=== PATIENT | female | born 1955 | race Caucasian/White ===

== ENCOUNTER → 2016-07-03 | Outpatient (REF) | payer OTHER ==
[~2016-07-03] MED LIST: AMBI10TA PO; ATOR1TAB19 PO; CARV3.12 PO; LANS15CA PO; LOSA50TA20 PO; TYLE650T25 PO
[2016-07-03 15:53] LABS: ALBUMIN 3.7 GM/DL (3.2-5.2); ALBUMIN/GLOBULIN RATIO 1.16 (1.00-1.93); ALKALINE PHOSPHATASE 80 U/L (45-117); ALT/SGPT 24 U/L (12-78); ANION GAP 11 MEQ/L (8-16); AST/SGOT 34 U/L (15-37); BILIRUBIN,TOTAL 0.9 MG/DL (0.2-1.0); BLOOD UREA NITROGEN 10 MG/DL (7-18); CALCIUM LEVEL 7.6 MG/DL (8.8-10.2); CARBON DIOXIDE LEVEL 29 MEQ/L (21-32); CHLORIDE LEVEL 105 MEQ/L (98-107); CREATININE FOR GFR 0.58 MG/DL (0.55-1.02); GLOMERULAR FILTRATION RATE > 60.0 (>45); GLUCOSE, FASTING 108 MG/DL (80-110); POTASSIUM SERUM 2.5 MEQ/L (3.5-5.1); SODIUM LEVEL 145 MEQ/L (136-145); TOTAL PROTEIN 6.9 GM/DL (6.4-8.2)
== END ==
LOC: M SFHCPLAZ 13:36
PROVIDERS: ATTEND Nurse Practitioner Family
DX: E11.65 Type 2 diabetes mellitus with hyperglycemia (principal)

== ENCOUNTER → 2016-07-06 | Outpatient (REF) | payer OTHER ==
[2016-07-06 13:09] LABS: ALBUMIN 3.5 GM/DL (3.2-5.2); ALBUMIN/GLOBULIN RATIO 1.25 (1.00-1.93); ALKALINE PHOSPHATASE 78 U/L (45-117); ALT/SGPT 22 U/L (12-78); ANION GAP 11 MEQ/L (8-16); AST/SGOT 28 U/L (15-37); BILIRUBIN,TOTAL 0.7 MG/DL (0.2-1.0); BLOOD UREA NITROGEN 13 MG/DL (7-18); CALCIUM LEVEL 7.8 MG/DL (8.8-10.2); CARBON DIOXIDE LEVEL 27 MEQ/L (21-32); CHLORIDE LEVEL 108 MEQ/L (98-107); CREATININE FOR GFR 0.51 MG/DL (0.55-1.02); GLOMERULAR FILTRATION RATE > 60.0 (>45); GLUCOSE, FASTING 117 MG/DL (80-110); POTASSIUM SERUM 2.8 MEQ/L (3.5-5.1); SODIUM LEVEL 146 MEQ/L (136-145); TOTAL PROTEIN 6.3 GM/DL (6.4-8.2)
== END ==
LOC: M SFHCPLAZ 08:02
PROVIDERS: ATTEND Nurse Practitioner Family
DX: E11.65 Type 2 diabetes mellitus with hyperglycemia (principal); E87.6 Hypokalemia; E83.51 Hypocalcemia

== ENCOUNTER → 2016-07-15 | Outpatient (REF) | payer OTHER ==
[2016-07-15 16:50] LABS: ALBUMIN 3.9 GM/DL (3.2-5.2); ALBUMIN/GLOBULIN RATIO 1.15 (1.00-1.93); ALKALINE PHOSPHATASE 84 U/L (45-117); ALT/SGPT 23 U/L (12-78); ANION GAP 4 MEQ/L (8-16); AST/SGOT 34 U/L (15-37); BILIRUBIN,TOTAL 0.9 MG/DL (0.2-1.0); BLOOD UREA NITROGEN 10 MG/DL (7-18); CALCIUM LEVEL 8.8 MG/DL (8.8-10.2); CARBON DIOXIDE LEVEL 31 MEQ/L (21-32); CHLORIDE LEVEL 108 MEQ/L (98-107); CHOLESTEROL LEVEL 78 MG/DL (<200); CREATININE FOR GFR 0.54 MG/DL (0.55-1.02); GLOMERULAR FILTRATION RATE > 60.0 (>45); GLUCOSE, FASTING 86 MG/DL (80-110); POTASSIUM SERUM 4.3 MEQ/L (3.5-5.1); SODIUM LEVEL 143 MEQ/L (136-145); TOTAL PROTEIN 7.3 GM/DL (6.4-8.2); TRIGLYCERIDES LEVEL 128 MG/DL (<150)
== END ==
LOC: M SFHCPLAZ 13:20
PROVIDERS: ATTEND Nurse Practitioner Family
DX: E11.65 Type 2 diabetes mellitus with hyperglycemia (principal); I10 Essential (primary) hypertension; E78.4 Other hyperlipidemia

== ENCOUNTER → 2016-07-15 | Outpatient (CLI) | payer OTHER ==
--- NOTE | 2016-07-15 14:21 | REP ---
BILATERAL MAMMOGRAM: Bilateral mammography performed in the MLO and CC projections and compared to multiple prior exams, the most recent of which is 04/23/2015. Mild scattered fibroglandular tissue is again noted. There appears to be a small, rounded nodule in the lower left breast, which is not seen on prior studies. It measures about 7 mm in maximum diameter. No other nodule is seen nor is there evidence of architectural distortion. No clustered microcalcifications are seen. IMPRESSION: New small nodular opacity lower left breast. Recommend spot compression views and ultrasound to further evaluate. ACR 0 incomplete. BI-RADS/ACR category 0 mammogram, incomplete. Additional imaging and/or prior images are needed before a final assessment can be assigned. This mammogram was interpreted with the aid of an FDA-approved computer-aided detection system. The patient states that she/he has not had a clinical breast exam in over a year. The patient letter being requested is M0.
== END ==
LOC: M WHC 12:59
PROVIDERS: ATTEND Nurse Practitioner Family
DX: Z12.31 Encounter for screening mammogram for malignant neoplasm of breast (principal); R92.2 Inconclusive mammogram

== ENCOUNTER → 2016-07-16 | Outpatient (REF) | payer OTHER | LOC: M LAB REF 14:06 | PROVIDERS: ATTEND Internal Medicine Nephrology | DX: E11.22 Type 2 diabetes mellitus with diabetic chronic kidney disease (principal); I10 Essential (primary) hypertension; E87.6 Hypokalemia ==

== ENCOUNTER → 2016-07-28 | Outpatient (CLI) | payer OTHER ==
[~2016-07-28] MED LIST changes: +GASTROGRAFIN SOLUTION 30ML (Q9963) As Ordered ONE; +ISOVUE-370 76% 100ML VIAL (Q9967) As Ordered ONE
--- NOTE | 2016-07-29 03:47 | REP ---
Clinical: Adrenal mass. Technique: Axial contrast enhanced images of the abdomen and pelvis from the lung bases to the pubic symphysis using oral and 100 ml Isovue 370 intravenous contrast material along with precontrast, arterial phase, and delayed phase imaging of the abdomen. Coronal and sagittal re-formations obtained. Comparison: None. Findings: The bilateral adrenal glands are normal in appearance, density and enhancement in all phases of evaluation. No adrenal mass lesion identified. Liver, spleen, pancreas, and bilateral kidneys are normal. The patient is status post cholecystectomy. The enteric system is without obstruction or acute inflammatory process. Pelvis demonstrates collapsed bladder and age-appropriate uterus/adnexa. No pelvic fluid or ascites. No intraperitoneal or retroperitoneal adenopathy. No free air. Abdominal aorta and vasculature is normal and without aneurysm or dissection. Musculoskeletal structures are intact. Lung bases are clear -- incidental 2 cm bullae in the posterior right lower lobe. Impression: 1. Normal bilateral adrenal glands without mass lesion. 2. No acute intra-abdominal or pelvic pathology appreciated. 3. Incidental 2 cm bullae in the right lower lobe Signed by Audi Pizarro MD 07/29/2016 03:38 A
== END ==
LOC: M RAD 09:52
PROVIDERS: ATTEND Internal Medicine Nephrology
DX: D44.10 Neoplasm of uncertain behavior of unspecified adrenal gland (principal); J43.9 Emphysema, unspecified; E87.6 Hypokalemia

== ENCOUNTER → 2016-07-28 | Outpatient (CLI) | payer OTHER ==
[~2016-07-28] MED LIST changes: -GASTROGRAFIN SOLUTION 30ML (Q9963) As Ordered ONE; -ISOVUE-370 76% 100ML VIAL (Q9967) As Ordered ONE
--- NOTE | 2016-07-28 10:29 | REP ---
DIAGNOSTIC MAMMOGRAM LEFT BREAST: Diagnostic mammogram left breast performed with spot compression views obtained of the left breast with a mole marker placed on an inferiorly located mole. The suspected nodular opacity in the inferior left breast on the mammogram of 07/15/2016 does correspond to a skin mole. Finding is benign. IMPRESSION: ACR 2 benign. The suspected nodular opacity in the lower left breast corresponds to a skin mole and is therefore benign. Recommend followup mammogram in 1 year. BI-RADS/ACR category 2 mammogram. Benign finding(s). Routine annual screening mammography (for women over age 40). This mammogram was interpreted with the aid of an FDA-approved computer-aided detection system. A. Negative x-ray reports should not delay biopsy if a dominant or clinically suspicious mass is present. B. Four to eight percent of cancers are not identified by x-ray. C. Adenosis and dense breasts may obscure an underlying neoplasm. The patient letter being requested is M1. Signed by Reji Bear MD 07/28/2016 05:24 P
== END ==
LOC: M RAD 09:48
PROVIDERS: ATTEND Nurse Practitioner Family
DX: D24.2 Benign neoplasm of left breast (principal)

== ENCOUNTER → 2016-08-19 | Outpatient (REF) | payer OTHER ==
[2016-08-19 19:14] LABS: PERCENT SATURATION 10.4 % (13.2-37.4)
== END ==
LOC: M LAB REF 16:49
PROVIDERS: ATTEND Internal Medicine Nephrology
DX: D50.9 Iron deficiency anemia, unspecified (principal)

== ENCOUNTER → 2017-05-06 | Outpatient (REF) | payer OTHER ==
[2017-05-07 14:05] LABS: ESTIMATED AVERAGE GLUCOSE 131 MG/DL (60-110); HEMOGLOBIN A1c 6.2 %
== END ==
LOC: M SFHCLERA 16:51
DX: E11.9 Type 2 diabetes mellitus without complications (principal)
CPT/HCPCS: 83036

== ENCOUNTER → 2017-05-19 | Outpatient (REF) | payer OTHER | LOC: M SFHCLERA 09:33 | DX: C44.519 Basal cell carcinoma of skin of other part of trunk (principal) ==

== ENCOUNTER → 2017-06-03 | Outpatient (REF) | payer OTHER ==
[2017-06-03 12:26] LABS: ANION GAP 8 MEQ/L (8-16); AST/SGOT 70 U/L (7-37); BLOOD UREA NITROGEN 14 MG/DL (7-18); CALCIUM LEVEL 8.6 MG/DL (8.8-10.2); CARBON DIOXIDE LEVEL 27 MEQ/L (21-32); CHLORIDE LEVEL 108 MEQ/L (98-107); CREATININE FOR GFR 0.57 MG/DL (0.55-1.30); GLOMERULAR FILTRATION RATE > 60.0 (>45); GLUCOSE, FASTING 108 MG/DL (70-100); POTASSIUM SERUM 4.1 MEQ/L (3.5-5.1); SODIUM LEVEL 143 MEQ/L (136-145)
[2017-06-03 12:27] LABS: ALBUMIN 3.7 GM/DL (3.2-5.2); ALBUMIN/GLOBULIN RATIO 1.16 (1.00-1.93); ALKALINE PHOSPHATASE 104 U/L (45-117); ALT/SGPT 49 U/L (12-78); BILIRUBIN,TOTAL 0.9 MG/DL (0.2-1.0); CHOLESTEROL LEVEL 82 MG/DL (<200); CHOLESTEROL RISK RATIO 2.645 (<5); HDL CHOLESTEROL 31 MG/DL (>40); LDL CHOLESTEROL 32.4 MG/DL (<100); MAGNESIUM LEVEL 1.7 MG/DL (1.8-2.4); NON-HDL-C 51 MG/DL; TOTAL PROTEIN 6.9 GM/DL (6.4-8.2); TRIGLYCERIDES LEVEL 93 MG/DL (<150)
[2017-06-03 13:08] LABS: HEMATOCRIT 37.1 % (36.0-47.0); HEMOGLOBIN 11.8 g/dl (12.0-16.0); MEAN CORPUSCULAR HEMOGLOBIN 27.2 pg (27.0-33.0); MEAN CORPUSCULAR HGB CONC 31.8 g/dl (32.0-36.5); MEAN CORPUSCULAR VOLUME 85.5 fl (80.0-96.0); PLATELET COUNT, AUTOMATED 118 10^3/uL (150-450); RED BLOOD COUNT 4.34 10^6/uL (4.00-5.40); RED CELL DISTRIBUTION WIDTH 19.8 % (11.5-14.5); WHITE BLOOD COUNT 5.7 10^3/uL (4.0-10.0)
== END ==
LOC: M SFHCLERA 09:23
DX: E78.5 Hyperlipidemia, unspecified (principal); E83.42 Hypomagnesemia; E11.21 Type 2 diabetes mellitus with diabetic nephropathy
CPT/HCPCS: 83735

== ENCOUNTER → 2017-07-15 | Outpatient (REF) | payer OTHER ==
[2017-07-15 18:45] LABS: FERRITIN 12 NG/ML (8-252); IRON (FE) 79 UG/DL (50-170); TOTAL IRON BINDING CAPACITY 359 UG/DL (250-450)
== END ==
LOC: M LAB REF 17:29
DX: D50.9 Iron deficiency anemia, unspecified (principal)

== ENCOUNTER → 2017-08-05 | Outpatient (REF) | payer OTHER | LOC: M SFHCLERA 12:03 | DX: C44.509 Unspecified malignant neoplasm of skin of other part of trunk (principal) ==

== ENCOUNTER → 2017-08-25 | Outpatient (REF) | payer OTHER | LOC: M SFHCLERA 09:26 | DX: C44.309 Unspecified malignant neoplasm of skin of other parts of face (principal) ==

== ENCOUNTER → 2017-11-17 | Outpatient (REF) | payer OTHER ==
[2017-11-17 17:31] LABS: ESTIMATED AVERAGE GLUCOSE 117 MG/DL (60-110); HEMOGLOBIN A1c 5.7 %
== END ==
LOC: M SFHCLERA 14:16
DX: E11.21 Type 2 diabetes mellitus with diabetic nephropathy (principal)

== ENCOUNTER → 2017-12-09 | Outpatient (REF) | payer OTHER | LOC: M SFHCLERA 10:37 | DX: C44.319 Basal cell carcinoma of skin of other parts of face (principal) ==

== ENCOUNTER → 2017-12-29 | Outpatient (REF) | payer OTHER | LOC: M SFHCLERA 14:52 | DX: Z12.4 Encounter for screening for malignant neoplasm of cervix (principal) ==

== ENCOUNTER → 2017-12-29 | Outpatient (CLI) | payer OTHER | LOC: M RAD 08:19 | DX: R92.2 Inconclusive mammogram (principal); R92.1 Mammographic calcification found on diagnostic imaging of breast | CPT/HCPCS: 77067 ==

== ENCOUNTER → 2018-01-10 | Outpatient (CLI) | payer OTHER | LOC: M RAD 12:58 | DX: R92.0 Mammographic microcalcification found on diagnostic imaging of breast (principal) | CPT/HCPCS: 77065 ==

== ENCOUNTER → 2018-01-19 | Outpatient (CLI) | payer OTHER ==
[~2018-01-19] MED LIST changes: -AMBI10TA PO; -ATOR1TAB19 PO; -CARV3.12 PO; -LANS15CA PO; +LIDOCAINE 1% MDV 20ML VIAL As Ordered; -LOSA50TA20 PO; -TYLE650T25 PO
== END ==
LOC: M RADPRO 11:45
DX: N64.89 Other specified disorders of breast (principal); R92.0 Mammographic microcalcification found on diagnostic imaging of breast; Z79.82 Long term (current) use of aspirin; Z79.899 Other long term (current) drug therapy; Z88.8 Allergy status to other drugs, medicaments and biological substances
CPT/HCPCS: 19081

== ENCOUNTER → 2018-02-03 | Outpatient (REF) | payer OTHER ==
[2018-02-03 17:58] LABS: HEMATOCRIT 38.1 % (36.0-47.0); HEMOGLOBIN 12.3 g/dl (12.0-15.5); MEAN CORPUSCULAR HEMOGLOBIN 29.4 pg (27.0-33.0); MEAN CORPUSCULAR HGB CONC 32.3 g/dl (32.0-36.5); MEAN CORPUSCULAR VOLUME 91.1 fl (80.0-96.0); PLATELET COUNT, AUTOMATED 100 10^3/uL (150-450); RED BLOOD COUNT 4.18 10^6/uL (4.00-5.40); RED CELL DISTRIBUTION WIDTH 14.5 % (11.5-14.5); WHITE BLOOD COUNT 6.4 10^3/uL (4.0-10.0)
[2018-02-03 18:09] LABS: INR 1.18; PROTHROMBIN TIME 15.2 SECONDS (12.1-14.4)
[2018-02-03 18:26] LABS: ANION GAP 9 MEQ/L (8-16); BLOOD UREA NITROGEN 18 MG/DL (7-18); CALCIUM LEVEL 8.7 MG/DL (8.8-10.2); CARBON DIOXIDE LEVEL 26 MEQ/L (21-32); CHLORIDE LEVEL 109 MEQ/L (98-107); CREATININE FOR GFR 0.64 MG/DL (0.55-1.30); GLOMERULAR FILTRATION RATE > 60.0 (>45); GLUCOSE, FASTING 118 MG/DL (70-100); POTASSIUM SERUM 4.1 MEQ/L (3.5-5.1); SODIUM LEVEL 144 MEQ/L (136-145)
== END ==
LOC: M SFHCLERA 11:09
DX: Z01.812 Encounter for preprocedural laboratory examination (principal)
CPT/HCPCS: 80048

== ENCOUNTER 2018-02-04 07:41 | Day surgery (SDC) | payer OTHER ==
[~2018-02-04 07:41] MED LIST changes: -LIDOCAINE 1% MDV 20ML VIAL As Ordered; +LIDOCAINE 1% MDV 20ML VIAL SQ
[2018-02-04] MEDS ORDERED: LIDOCAINE 1% MDV 20ML VIAL As Ordered ×2 (07:51)
[2018-02-04] MEDS ORDERED: dexameTHASONE 4 MG/ML 1ML VIAL (J1100) As Ordered ×2 (07:58)
[2018-02-04] MEDS ORDERED: PROPOFOL 200 MG/20 ML VIAL As Ordered ×2 (07:58)
[2018-02-04] MEDS ORDERED: ONDANSETRON 4MG/2ML VIAL (J2405) As Ordered ×2 (07:58)
[2018-02-04] MEDS ORDERED: KETOROLAC 60 MG/2 ML VIAL (J1885) As Ordered ×2 (07:58)
[2018-02-04] MEDS ORDERED: fentaNYL 100 MCG/2 ML INJECTION (J3010) As Ordered ×4 (07:59→10:32)
[2018-02-04] MEDS ORDERED: MIDAZOLAM INJ 2 MG/2 ML VIAL (J2250) As Ordered ×2 (07:59)
[2018-02-04] MEDS: LIDOCAINE 5% (LIDODERM) PATCH TD ×2 (08:00)
[2018-02-04] MEDS ORDERED: LIDOCAINE 2% INJ 100 MG/5 ML SDV (FOR ANES.) As Ordered ×2 (08:09)
[2018-02-04 08:31] LABS: BEDSIDE GLUCOSE 119 MG/DL (80-115)
[2018-02-04] MEDS ORDERED: ROCURONIUM BROMIDE 50 MG/5 ML VIAL As Ordered ×2 (09:15)
[2018-02-04] MEDS: LR 1,000 ML IV ×2 (09:15)
[2018-02-04] MEDS: LIDOCAINE 1% SDV INJ 30 ML VIAL As Ordered ×2 (10:09)
[2018-02-04] MEDS: BUPIVACAINE HCL 0.25% 30 ML VIAL As Ordered ×2 (10:09)
[2018-02-04] MEDS ORDERED: ePHEDrine SULFATE 25 MG/5 ML(5MG/ML) SYRINGE As Ordered ×2 (10:15)
[2018-02-04] MEDS ORDERED: GLYCOPYRROLATE INJ 0.2 MG/ML 2 ML VIAL As Ordered ×2 (10:47)
[2018-02-04] MEDS ORDERED: NEOSTIGMINE 10 MG/10 ML VIAL (J2710) As Ordered ×2 (10:47)
[2018-02-04] MEDS ORDERED: ONDANSETRON 4MG/2ML VIAL (J2405) IV ×4 (11:45)
[2018-02-04] MEDS ORDERED: NORCO, ANEXSIA 5/325MG TABLET (HYDROcodone/ACETAMINOPHEN) PO ×2 (11:45)
[2018-02-04] MEDS ORDERED: LR 1,000 ML IV ×2 (11:45)
[2018-02-04] MEDS ORDERED: fentaNYL 100 MCG/2 ML INJECTION (J3010) IV ×2 (11:45)
[2018-02-04] MEDS ORDERED: KETOROLAC 30 MG/ML VIAL (J1885) IV ×2 (14:00)
== END 2018-02-04 13:10 | disposition home or self-care (01) ==
LOC: M SDC 07:41
DX: N60.91 Unspecified benign mammary dysplasia of right breast (principal); I10 Essential (primary) hypertension; E78.5 Hyperlipidemia, unspecified; E11.9 Type 2 diabetes mellitus without complications; K21.9 Gastro-esophageal reflux disease without esophagitis; J44.9 Chronic obstructive pulmonary disease, unspecified; Z79.899 Other long term (current) drug therapy
CPT/HCPCS: 19125

== ENCOUNTER 2018-02-21 10:17 | Day surgery (SDC) | payer OTHER ==
[~2018-02-21 10:17] MED LIST changes: -LIDOCAINE 1% MDV 20ML VIAL SQ; +LR 1,000 ML IV
[2018-02-21] MEDS ORDERED: LIDOCAINE W/EPINEPHRINE 1% 20ML VIAL As Ordered (10:22)
[2018-02-21] MEDS ORDERED: LIDOCAINE 1% MDV 20ML VIAL As Ordered (10:22)
[2018-02-21 10:49] LABS: HEMATOCRIT 37.4 % (36.0-47.0); HEMOGLOBIN 12.3 g/dl (12.0-15.5); MEAN CORPUSCULAR HEMOGLOBIN 29.6 pg (27.0-33.0); MEAN CORPUSCULAR HGB CONC 32.9 g/dl (32.0-36.5); MEAN CORPUSCULAR VOLUME 89.9 fl (80.0-96.0); RED BLOOD COUNT 4.16 10^6/uL (4.00-5.40); RED CELL DISTRIBUTION WIDTH 14.2 % (11.5-14.5); WHITE BLOOD COUNT 4.7 10^3/uL (4.0-10.0)
[2018-02-21 10:51] LABS: PLATELET COUNT, AUTOMATED 94 10^3/uL (150-450)
[2018-02-21 10:52] LABS: IMMATURE PLATELET FRACTION % 3.9 % (0.0-9.6)
[2018-02-21] MEDS ORDERED: dexameTHASONE 4 MG/ML 1ML VIAL (J1100) As Ordered (10:56)
[2018-02-21] MEDS ORDERED: LIDOCAINE 2% INJ 100 MG/5 ML SDV (FOR ANES.) As Ordered (10:56)
[2018-02-21] MEDS ORDERED: PROPOFOL 200 MG/20 ML VIAL As Ordered (10:56)
[2018-02-21] MEDS ORDERED: ROCURONIUM BROMIDE 50 MG/5 ML VIAL As Ordered ×2 (10:56→11:56)
[2018-02-21] MEDS ORDERED: fentaNYL 250 MCG/5 ML INJECTION (J3010) As Ordered (10:57)
[2018-02-21] MEDS ORDERED: MIDAZOLAM INJ 2 MG/2 ML VIAL (J2250) As Ordered (10:57)
[2018-02-21 11:11] LABS: BEDSIDE GLUCOSE 112 MG/DL (80-115)
[2018-02-21 11:16] LABS: ANION GAP 4 MEQ/L (8-16); BLOOD UREA NITROGEN 17 MG/DL (7-18); CALCIUM LEVEL 8.8 MG/DL (8.8-10.2); CARBON DIOXIDE LEVEL 28 MEQ/L (21-32); CHLORIDE LEVEL 113 MEQ/L (98-107); CREATININE FOR GFR 0.63 MG/DL (0.55-1.30); GLOMERULAR FILTRATION RATE > 60.0 (>45); GLUCOSE, FASTING 111 MG/DL (70-100); POTASSIUM SERUM 4.1 MEQ/L (3.5-5.1); SODIUM LEVEL 145 MEQ/L (136-145)
[2018-02-21] MEDS ORDERED: ONDANSETRON 4MG/2ML VIAL (J2405) As Ordered (12:39)
[2018-02-21] MEDS ORDERED: KETOROLAC 60 MG/2 ML VIAL (J1885) As Ordered (12:40)
[2018-02-21] MEDS ORDERED: NEOSTIGMINE 10 MG/10 ML VIAL (J2710) As Ordered (12:40)
[2018-02-21] MEDS ORDERED: GLYCOPYRROLATE INJ 0.2 MG/ML 2 ML VIAL As Ordered (12:40)
[2018-02-21] MEDS: BUPIVACAINE HCL 0.25% 30 ML VIAL As Ordered (12:49)
[2018-02-21] MEDS: LIDOCAINE 1% SDV INJ 30 ML VIAL As Ordered (12:50)
[2018-02-21] MEDS ORDERED: METOCLOPRAMIDE INJ 10MG/2ML VIAL (J2765) IV (13:30)
[2018-02-21] MEDS ORDERED: KETOROLAC 30 MG/ML VIAL (J1885) IV (13:30)
[2018-02-21] MEDS ORDERED: NORCO, ANEXSIA 5/325MG TABLET (HYDROcodone/ACETAMINOPHEN) PO (13:30)
[2018-02-21] MEDS ORDERED: LR 1,000 ML IV (13:30)
[2018-02-21] MEDS ORDERED: fentaNYL 100 MCG/2 ML INJECTION (J3010) IV (13:30)
[2018-02-21] MEDS ORDERED: ONDANSETRON 4MG/2ML VIAL (J2405) IV ×2 (13:30)
[2018-02-21] MEDS ORDERED: PERCOCET 5MG/325MG TAB PO (13:30)
== END 2018-02-21 14:15 | disposition home or self-care (01) ==
LOC: M SDC 14:15
DX: D05.11 Intraductal carcinoma in situ of right breast (principal); I10 Essential (primary) hypertension; E11.9 Type 2 diabetes mellitus without complications; E78.00 Pure hypercholesterolemia, unspecified; K21.9 Gastro-esophageal reflux disease without esophagitis; Z87.891 Personal history of nicotine dependence; Z79.899 Other long term (current) drug therapy
CPT/HCPCS: 19125

== ENCOUNTER → 2018-03-01 | Outpatient (CLI) | payer OTHER | LOC: M ONCR 08:50 | DX: C50.911 Malignant neoplasm of unspecified site of right female breast (principal) | CPT/HCPCS: G0463 ==

== ENCOUNTER → 2018-03-04 | Outpatient (REF) | payer OTHER ==
[2018-03-04 14:03] LABS: FERRITIN 20 NG/ML (8-252); IRON (FE) 80 UG/DL (50-170); PERCENT SATURATION 28.1 % (13.2-45.0); TOTAL IRON BINDING CAPACITY 285 UG/DL (250-450)
== END ==
LOC: M LAB REF 13:04
DX: D50.9 Iron deficiency anemia, unspecified (principal)
CPT/HCPCS: 83550

== ENCOUNTER → 2018-04-04 | Outpatient (RCR) | payer OTHER ==
--- NOTE | 2018-03-17 10:12 | RADONC ---
RADIATION ONCOLOGY SIMULATION NOTE DATE: 03/16/2018 CHART NUMBER: [id number] SIMULATION NOTE: Ms. Kiser was taken to the CT scan for CT simulation of her right breast field. CT was accomplished without difficulty or discomfort. Radiation treatment planning is underway and radiation treatments will begin subsequently. An immobilization device was created and will be used throughout the course of treatment. It was created without difficulty or discomfort. I was physically present throughout the course of CT simulation.
[~2018-04-04] MED LIST changes: +ALLE180T33 PO; +AMBI10TA PO; +ASPI81TA85 PO; +ATOR1TAB19 PO; +ATOR40TA75 PO; +CARV3.12 PO; +FERR140T2 PO; +FERR325T3 PO; +GLIP5TAB8 PO; +LANS15CA PO; +LOSA50TA88 PO; -LR 1,000 ML IV; +MAGN1TAB25 PO; +METF-839 PO; +MULTCAP PO; +NORCOTAB PO; +PANT40TA3 PO; +POTA10TA14 PO; +SILV40CR EXT; +TAMO10TA PO; +TRAZ1TAB14 PO; +TYLE650T25 PO
--- NOTE | 2018-04-06 14:13 | RADONC ---
RADIATION ONCOLOGY PROGRESS NOTE DATE: 04/04/2018 CHART NUMBER: [id number] PROGRESS NOTE: Ms. Kiser is presently at a dose of 1067 cGy to her right breast and is tolerating treatments quite well at this point with no complaints related to her radiation therapy. She is having no breast or bone pain. REVIEW OF SYSTEMS: The patient's review of systems is noncontributory. Denies nausea, vomiting, fevers, chills, night sweats, diplopia, headaches, anxiety or depression, anorexia, weight loss, visual disturbances, chest pain, urinary or bowel difficulties, bone pain, or neurological problems. PHYSICAL EXAMINATION: The patient's skin is in good condition with no evidence of moist or dry desquamation. The remainder of her physical exam remains unchanged. Ms. Kiser is tolerating treatments quite well and radiation will continue as scheduled.
== END ==
LOC: M ONCR 03-16 09:15
PROVIDERS: ATTEND Radiology Radiation Oncology
DX: D05.11 Intraductal carcinoma in situ of right breast (principal)

== ENCOUNTER 2018-05-02 09:55 | Outpatient (RCR) | payer OTHER ==
--- NOTE | 2018-04-19 07:08 | RADONC ---
RADIATION ONCOLOGY SIMULATION NOTE DATE: 04/18/2018 CHART #: [id number] Ms. Kiser was taken to the linear accelerator today for clinical setup of her right breast electron beam boost field. Setup was accomplished without difficulty or discomfort. Radiation treatment planning is underway and radiation treatments will begin subsequently. An immobilization device was created and will be used throughout the course of treatment. It was created without difficulty or discomfort. I was physically present throughout the course of clinical setup simulation.
--- NOTE | 2018-04-19 07:10 | RADONC ---
RADIATION ONCOLOGY PROGRESS NOTE DATE: 04/18/2018 CHART #: [id number] Ms. Kiser is presently at a dose of 3200 cGy to her right breast and is tolerating treatments quite well at this point with no complaints related to radiation therapy. She is having no significant breast or bone pain. REVIEW OF SYSTEMS: The patient's review of systems is noncontributory. Denies nausea, vomiting, fevers, chills, night sweats, diplopia, headaches, anxiety or depression, anorexia, weight loss, visual disturbances, chest pain, urinary or bowel difficulties, bone pain, or neurological problems. PHYSICAL EXAMINATION: The patient's skin is in good condition with no evidence of moist or dry desquamation. The remainder of her physical exam remains unchanged. Ms. Kiser is tolerating treatments quite well and radiation will continue as scheduled.
[2018-05-02] MEDS ORDERED: PERC5TAB12 PO (10:19)
--- NOTE | 2018-05-02 12:46 | RADONC ---
RADIATION ONCOLOGY TREATMENT SUMMARY DATE: 05/02/2017 CHART #: [id number] DIAGNOSIS: Right breast cancer. STAGE: 0, [id number]. ECOG PERFORMANCE STATUS: 0. TREATMENT SUMMARY: Ms. Kiser is a very pleasant 62-year-old white female with the diagnosis of a stage 0, [id number], ductal carcinoma in situ of the right breast who presented to us status post lumpectomy for consideration of postoperative radiation therapy for conservative breast management. We treated the patient to her right breast for a total dose of 4000 cGy delivered in 15 fractions of 266.67 cGy each over 22 elapsed days from 03/30/2018 through 04/21/2018. The patient's right breast was treated on a linear accelerator utilizing a combination of 6 X and 15 X photons via 3-D conformal technique with medial and lateral tangential milligan. Following completion of 4000 cGy to the entire right breast, the primary site was boosted for an additional 900 cGy delivered in five fractions of 180 cGy each from 04/22/2018 through 05/02/2018. The patient's primary site boost was treated on a linear accelerator utilizing a 16 MEV electron beam prescribed to the 90% isodose line via a non phos technique. This brought the primary site to a total dose of 4900 cGy delivered in 20 fractions over 32 elapsed days from 03/30/2018 through 05/02/2018. Ms. Kiser tolerated her treatments quite well, although she did complain of pain especially in the axillary region which is keeping her from sleeping completion of treatment. I have given the patient a prescription for some Percocet to get her through the immediate discomfort. I have scheduled the patient to see me again in 1 month for further followup. She will also continue to be followed by her other physicians as well. Thank you for allowing us to participate in the care of this very pleasant woman. If I could be of any further assistance or provide you with any information, please feel free to contact me at anytime. As always warm regards. cc: Mc Singh MD
== END 2018-05-05 ==
LOC: M ONCR 09:55
PROVIDERS: ATTEND Radiology Radiation Oncology
DX: D05.11 Intraductal carcinoma in situ of right breast (principal)

== ENCOUNTER → 2018-05-27 | Outpatient (REF) | payer OTHER ==
[~2018-05-27] MED LIST changes: +PERC5TAB12 PO
[2018-05-27 13:28] LABS: BASO # 0.1 10^3/uL (0.0-0.2); BASO % 1.3 % (0.0-1.0); EOS # 0.2 10^3/uL (0.0-0.50); EOS % 6.3 % (0.0-3.0); HEMATOCRIT 38.4 % (36.0-47.0); HEMOGLOBIN 12.2 g/dl (12.0-15.5); LYMPH # 1.6 10^3/uL (1.5-4.5); LYMPH % 40.9 % (24.0-44.0); MEAN CORPUSCULAR HEMOGLOBIN 30.4 pg (27.0-33.0); MEAN CORPUSCULAR HGB CONC 31.8 g/dl (32.0-36.5); MEAN CORPUSCULAR VOLUME 95.8 fl (80.0-96.0); MONO # 0.4 10^3/uL (0.0-0.8); MONO % 9.6 % (0.0-5.0); NEUTROPHILS # 1.6 10^3/uL (1.8-7.7); NEUTROPHILS % 41.6 % (36.0-66.0); RED BLOOD COUNT 4.01 10^6/uL (4.00-5.40); WHITE BLOOD COUNT 3.8 10^3/uL (4.0-10.0)
[2018-05-27 13:32] LABS: PLATELET COUNT, AUTOMATED 88 10^3/uL (150-450)
[2018-05-27 14:01] LABS: ALBUMIN 3.2 GM/DL (3.2-5.2); ALT/SGPT 29 U/L (12-78); BILIRUBIN,TOTAL 0.6 MG/DL (0.2-1.0); BLOOD UREA NITROGEN 17 MG/DL (7-18); CALCIUM LEVEL 8.1 MG/DL (8.8-10.2); CARBON DIOXIDE LEVEL 26 MEQ/L (21-32); CHLORIDE LEVEL 109 MEQ/L (98-107); CHOLESTEROL LEVEL 66 MG/DL (<200); CHOLESTEROL RISK RATIO 1.941 (<5); GLOMERULAR FILTRATION RATE > 60.0 (>45); GLUCOSE, FASTING 161 MG/DL (70-100); HDL CHOLESTEROL 34 MG/DL (>40); LDL CHOLESTEROL 15 MG/DL (<100); MAGNESIUM LEVEL 1.6 MG/DL (1.8-2.4); NON-HDL-C 32 MG/DL; POTASSIUM SERUM 4.2 MEQ/L (3.5-5.1); SODIUM LEVEL 143 MEQ/L (136-145); THYROID STIMULATING HORMONE 0.811 uIU/ML (0.358-3.740); TOTAL PROTEIN 5.9 GM/DL (6.4-8.2); TRIGLYCERIDES LEVEL 83 MG/DL (<150)
[2018-05-27 14:15] LABS: MALB URINE SIEMENS 16.6 MG/L; MAU/CREAT RATIO 7.4 MCG/MG (0.0-30.0)
[2018-05-27 14:25] LABS: HEMOGLOBIN A1c 5.7 %
== END ==
LOC: M SFHCLERA 10:16
PROVIDERS: ATTEND Family Medicine
DX: E11.21 Type 2 diabetes mellitus with diabetic nephropathy (principal)

== ENCOUNTER → 2018-06-01 | Outpatient (CLI) | payer OTHER ==
--- NOTE | 2018-06-06 10:04 | RADONC ---
RADIATION ONCOLOGY FOLLOWUP NOTE DATE: 06/01/2018 CHART NUMBER: [id number] DIAGNOSIS: Right breast cancer. STAGE: 0, [id number]. ECOG PERFORMANCE STATUS: 0 Ms. Kiser is a very pleasant 62-year-old white female with the diagnosis of a stage 0, [id number] ductal carcinoma in situ of the right breast, who is presenting to us today for routine followup visit 1 month post completion of external beam radiation therapy. The patient presents today reporting that she is doing quite well with no complaints at this time related to her radiation therapy or disease. She is having no breast or bone pain. The patient's review of systems is noncontributory. She denies nausea, vomiting, fevers, chills, night sweats, diplopia, headaches, anxiety or depression, anorexia, weight loss, visual disturbances, chest pain, urinary or bowel difficulties, bone pain, or neurological problems. PHYSICAL EXAMINATION: The patient is a well-developed, well-nourished female in no acute distress. HEENT exam is normocephalic, atraumatic. Extraocular movements are intact. There is no palpable cervical, supraclavicular, infraclavicular, axillary, or inguinal lymphadenopathy present. Lungs are clear to auscultation and percussion. Heart has a regular rate and rhythm. Abdomen is benign with no hepatosplenomegaly, masses, or tenderness. Breast examination reveals no masses or discharge bilaterally. Skeletal examination reveals no tenderness to pressure or percussion of the bony skeleton. Extremities reveal no clubbing, cyanosis, or edema. Neurologic exam is grossly intact, as is the remainder of the physical examination. ASSESSMENT: The patient is clinically SERG at this time and will be seen by us again in 6 months for further followup. She will also continue to be followed by her other physicians as well. cc: MD Reji Smith MD
== END ==
LOC: M ONCR 09:39
PROVIDERS: ATTEND Radiology Radiation Oncology
DX: D05.11 Intraductal carcinoma in situ of right breast (principal)

== ENCOUNTER → 2018-06-02 | Outpatient (REF) | payer OTHER | LOC: M SFHCPLAZ 11:17 | PROVIDERS: ATTEND Dermatology | DX: C44.519 Basal cell carcinoma of skin of other part of trunk (principal) ==

== ENCOUNTER 2018-06-09 06:49 | Day surgery (SDC) | payer OTHER ==
[~2018-06-09] VITALS: Ht 157.5 cm; Wt 85.3 kg
[~2018-06-09 06:49] MED LIST changes: +NS 1,000 ML IV ONE
[2018-06-09] MEDS ORDERED: LIDOCAINE 2% INJ 100 MG/5 ML SDV (FOR ANES.) As Ordered ONE (07:37)
[2018-06-09] MEDS ORDERED: PROPOFOL 200 MG/20 ML VIAL As Ordered ONE (07:37)
[2018-06-09] MEDS ORDERED: CARVedilol 3.125 MG TAB PO ONE (07:45)
--- NOTE | 2018-06-09 08:14 | ROOR ---
Patient Name: Gricelda Kiser Procedure Date: 06/09/2018 7:50 AM Date of : 1955 Age: 62 Room: [facility] Gender: Female Note Status: Finalized Procedure: Colonoscopy Indications: High risk colon cancer surveillance: Personal history of adenoma with high grade dysplasia Providers: Elias TSE MD Referring MD: Reji GONZALEZ MD Requesting Provider: Medicines: Monitored Anesthesia Care Complications: No immediate complications. Procedure: Pre-Anesthesia Assessment: - The heart rate, respiratory rate, oxygen saturations, blood pressure, adequacy of pulmonary ventilation, and response to care were monitored throughout the procedure. The Colonoscope was introduced through the anus and advanced to the cecum, identified by appendiceal orifice and ileocecal valve. The colonoscopy was performed without difficulty. The patient tolerated the procedure well. The quality of the bowel preparation was adequate. Findings: The perianal and digital rectal examinations were normal. A tattoo was seen in the recto-sigmoid colon. A post-polypectomy scar was found at the tattoo site. There was no evidence of residual polyp tissue. This was biopsied with a cold forceps for histology. Mild sigmoid diverticulosis and small internal hemorrhoids. The exam was otherwise without abnormality on direct and retroflexion views. Impression: - A tattoo was seen in the recto-sigmoid colon. A post-polypectomy scar was found at the tattoo site. There was no definite evidence of residual polyp tissue, however there is some mild puckering of the surface at the polypectomy site. Biopsied to r/o adenoma. - Mild sigmoid diverticulosis and small internal hemorrhoids. - The examination was otherwise normal on direct and retroflexion views. Recommendation: - Telephone endoscopist for pathology results in 2 weeks. - Repeat colonoscopy for surveillance based on pathology results. - (repeat colonoscopy likely in about 3 years) Elias Tse MD Elias TSE MD 06/09/2018 8:13:55 AM This report has been signed electronically. Number of Addenda: 0 Note Initiated On: 06/09/2018 7:50 AM Estimated Blood Loss: Estimated blood loss: none.
[2018-06-09 08:45] VITALS: BP 129/75
== END 2018-06-09 08:47 | disposition home or self-care (01) ==
LOC: M OPP 06:49
PROVIDERS: ATTEND Internal Medicine Gastroenterology
DX: K57.30 Diverticulosis of large intestine without perforation or abscess without bleeding (principal); K64.8 Other hemorrhoids; Z86.010 Personal history of colon polyps

== ENCOUNTER → 2018-11-23 | Outpatient (CLI) | payer MEDICARE, OTHER ==
[~2018-11-23] MED LIST changes: +HYDR-3715 PO; -MAGN1TAB25 PO; +MAGN1TAB26 PO; -NORCOTAB PO; -NS 1,000 ML IV ONE
--- NOTE | 2018-11-25 15:04 | RADONC ---
RADIATION ONCOLOGY FOLLOWUP NOTE DATE: 11/23/2018 CHART NUMBER: [id number] DIAGNOSIS: Right breast cancer. STAGE: 0, [id number]. ECOG PERFORMANCE STATUS: 0 FOLLOWUP NOTE: Ms. Kiser is a very pleasant, 63-year-old white female with the diagnosis of a stage 0, [id number] ductal carcinoma in situ of the right breast who is presenting to us today for routine followup visit 7 months post completion of external beam radiation therapy. The patient presents today reporting that she is doing quite well with no complaints at this time related to her radiation therapy or disease. She is having no breast or bone pain. REVIEW OF SYSTEMS: The patient's review of systems is noncontributory. Denies nausea, vomiting, fevers, chills, night sweats, diplopia, headaches, anxiety or depression, anorexia, weight loss, visual disturbances, chest pain, urinary or bowel difficulties, bone pain, or neurological problems. PHYSICAL EXAMINATION: The patient is a well-developed, well-nourished,63-year-old white female, in no acute distress. HEENT exam is normocephalic, atraumatic. Extraocular movements are intact. There is no palpable cervical, supraclavicular, infraclavicular, axillary, or inguinal lymphadenopathy present. Lungs are clear to auscultation and percussion. Heart has a regular rate and rhythm. Abdomen is benign with no hepatosplenomegaly, masses, or tenderness. Breast examination reveals no masses or discharge bilaterally. Skeletal examination reveals no tenderness to pressure or percussion of the bony skeleton. Extremities reveal no clubbing, cyanosis, or edema. Neurologic exam is grossly intact, as is the remainder of the physical examination. ASSESSMENT: The patient is clinically SERG at this time and will be seen by us again in 4 months for further followup. She will also continue to be followed by her other physicians as well. I ordered a new screening mammography to be done prior to her next visit in January of this year. cc: MD Reji Smith MD
== END ==
LOC: M ONCR 09:30
PROVIDERS: ATTEND Radiology Radiation Oncology
DX: D05.11 Intraductal carcinoma in situ of right breast (principal)

== ENCOUNTER → 2018-11-24 | Outpatient (REF) | payer MEDICARE ==
[~2018-11-24] MED LIST changes: +TAMO20TA8 PO
[2018-11-24 17:32] LABS: BLOOD UREA NITROGEN 16 MG/DL (7-18); CALCIUM LEVEL 8.1 MG/DL (8.8-10.2); CARBON DIOXIDE LEVEL 25 MEQ/L (21-32); CHLORIDE LEVEL 112 MEQ/L (98-107); CREATININE FOR GFR 0.53 MG/DL (0.55-1.30); GLOMERULAR FILTRATION RATE > 60.0 (>45); GLUCOSE, FASTING 157 MG/DL (70-100); POTASSIUM SERUM 3.8 MEQ/L (3.5-5.1); SODIUM LEVEL 144 MEQ/L (136-145)
== END ==
LOC: M SFHCLERA 10:42
PROVIDERS: ATTEND Family Medicine
DX: E11.9 Type 2 diabetes mellitus without complications (principal)

== ENCOUNTER → 2019-01-16 | Outpatient (CLI) | payer MEDICARE ==
[~2019-01-16] MED LIST changes: -TAMO20TA8 PO
--- NOTE | 2019-01-16 09:32 | REPMRS ---
Patient History The patient states she had a clinical breast exam in November 2018.Patient is postmenopausal, has history of cancer in the right breast at age 62, and has history of high-risk lesion on a previous biopsy at age 62. Family history of colorectal cancer at age 50 or over in maternal aunt, unknown cancer at age 90 in father, ovarian cancer at age 60 in maternal aunt, unknown cancer at age 60 in maternal aunt. Radiation therapy of the right breast, 2019. Malignant radio exam breast specimen of the right breast, February 04, 2018. Malignant localization of breast nodule of the right breast, February 04, 2018. High risk radio exam breast specimen of the right breast, January 19, 2018. High risk stereotatic loc for ea lesion of the right breast, January 19, 2018. Taking tamoxifen beginning at age 1. Digital Mammo Screening Bilat: January 16, 2019 - Exam #: [id number] Bilateral CC and MLO view(s) were taken. Technologist: Vanesa Hernandez Technologist Prior study comparison: January 10, 2018, right breast digital mammo diagnostic unilateral performed at [facility]. December 29, 2017, bilateral digital mammo screening bilat performed at [facility]. July 15, 2016, digital woman screen mammo, performed at [facility]. April 23, 2015, digital woman screen mammo, performed at [facility]. FINDINGS: There are scattered fibroglandular densities. There is diffuse skin thickening with postsurgical fibrosis and surgical clips in the upper outer quadrant right breast representing post-treatment changes. There has been no change in the appearance of the mammogram from the prior studies. There is a mild amount of scattered fibroglandular density which is fairly symmetric. There is no interval development of dominant mass, architectural distortion, or grouped microcalcification suggestive of malignancy. 3-D tomosynthesis shows no additional findings. Assessment: BI-RADS/ACR category 2 mammogram. Benign Findings. Recommendation Routine screening mammogram of both breasts in 1 year (for women over age 40). This mammogram was interpreted with the aid of an FDA-approved computer-aided dectection system. Electronically Signed By: Tito Zabala MD 01/16/19 0931
== END ==
LOC: M RAD 08:44
PROVIDERS: ATTEND Radiology Radiation Oncology
DX: Z12.31 Encounter for screening mammogram for malignant neoplasm of breast (principal); Z85.3 Personal history of malignant neoplasm of breast; Z80.0 Family history of malignant neoplasm of digestive organs; Z78.0 Asymptomatic menopausal state

== ENCOUNTER → 2019-03-22 | Outpatient (CLI) | payer MEDICARE ==
--- NOTE | 2019-03-24 14:50 | RADONC ---
RADIATION ONCOLOGY FOLLOWUP NOTE DATE: 03/22/2019 CHART NUMBER: [id number] DIAGNOSIS: Right breast cancer. STAGE: 0, [id number]. ECOG PERFORMANCE STATUS: 0 FOLLOWUP NOTE: Ms. Kiser is a very pleasant 63-year-old white female with the diagnosis of a stage 0, [id number] ductal carcinoma in situ of the right breast who is presenting to us today for routine followup visit 11 months post completion of external beam radiation therapy. The patient presents today reporting that she is doing quite well with no complaints at this time related to her radiation therapy or disease. She has no breast or bone pain. REVIEW OF SYSTEMS: The patient's review of systems is noncontributory. Denies nausea, vomiting, fevers, chills, night sweats, diplopia, headaches, anxiety or depression, anorexia, weight loss, visual disturbances, chest pain, urinary or bowel difficulties, bone pain, or neurological problems. PHYSICAL EXAMINATION: The patient is a well-developed, well-nourished, 63-year-old white female, in no acute distress. HEENT exam is normocephalic, atraumatic. Extraocular movements are intact. There is no palpable cervical, supraclavicular, infraclavicular, axillary, or inguinal lymphadenopathy present. Lungs are clear to auscultation and percussion. Heart has a regular rate and rhythm. Abdomen is benign with no hepatosplenomegaly, masses, or tenderness. Breast examination reveals no masses or discharge bilaterally. Skeletal examination reveals no tenderness to pressure or percussion of the bony skeleton. Extremities reveal no clubbing, cyanosis, or edema. Neurologic exam is grossly intact, as is the remainder of the physical examination. ASSESSMENT: The patient is clinically SERG at this time and will be seen by us again in 6 months for further followup. She will also continue to be followed by her other physicians as well. The patient is presently taking tamoxifen, which was prescribed by Dr. Singh. She reports that she is no longer scheduled see Dr. Singh and has asked for a medical oncology referral for continuation of her hormonal treatments. In light of this, I am referring the patient to medical oncology for further evaluation and continued followup and management. cc: MD Renata Smith MD Daniel Krebs, MD
== END ==
LOC: M ONCR 09:11
PROVIDERS: ATTEND Radiology Radiation Oncology
DX: D05.11 Intraductal carcinoma in situ of right breast (principal)

== ENCOUNTER → 2019-05-05 | Outpatient (CLI) | payer MEDICARE ==
[~2019-05-05] MED LIST changes: +TAMO20TA8 PO
--- NOTE | 2019-05-05 09:00 | REP ---
Complete abdominal ultrasound for thrombocytopenia: Comparison is the right upper quadrant ultrasound dated 11/17/2010. The the patient has a cholecystectomy. There is no intrahepatic or extrahepatic biliary duct dilatation. The common biliary duct measures 6.7 mm in diameter. The liver is enlarged measuring 70 1 cm craniocaudad in the midclavicular line. The hepatic parenchyma has a coarsened texture compatible with hepato steatosis/hepatocellular disease. The visualized areas of the pancreas are unremarkable. The spleen is enlarged measuring 14.3 x 12.7 x 6.7 cm for a splenic index of 1216. The right kidney measures 4.3 x 6.0 x 4.9 cm. Left kidney measures 31 0 x 9.9 x 4.7. The kidneys are normal size. There are no renal calculi. There is no hydronephrosis. There are no solid or cystic renal masses. The abdominal aorta is unremarkable. There is no abdominal ascites. Impression: Hepatomegaly and coarsened hepatic echotexture compatible with hepato steatosis/hepatocellular disease. Enlarged spleen. Cholecystectomy. Electronically Signed by Reji Wang MD 05/05/2019 08:52 A
== END ==
LOC: M RAD 06:48
PROVIDERS: ATTEND Internal Medicine Hematology & Oncology
DX: D69.6 Thrombocytopenia, unspecified (principal); Z90.49 Acquired absence of other specified parts of digestive tract; R16.2 Hepatomegaly with splenomegaly, not elsewhere classified

== ENCOUNTER → 2019-06-14 | Outpatient (REF) | payer MEDICARE ==
[~2019-06-14] MED LIST changes: +VITA1CHW7 PO
[2019-06-14 16:49] LABS: BASO # 0.1 10^3/uL (0.0-0.2); EOS # 0.2 10^3/uL (0.0-0.5); EOS % 3.2 % (0.0-3.0); HEMATOCRIT 40.2 % (36.0-47.0); HEMOGLOBIN 12.9 g/dl (12.0-15.5); LYMPH # 2.2 10^3/uL (1.5-5.0); LYMPH % 37.5 % (24.0-44.0); MEAN CORPUSCULAR HEMOGLOBIN 29.9 pg (27.0-33.0); MEAN CORPUSCULAR HGB CONC 32.1 g/dl (32.0-36.5); MEAN CORPUSCULAR VOLUME 93.1 fl (80.0-96.0); MONO # 0.8 10^3/uL (0.0-0.8); NEUTROPHILS # 2.6 10^3/uL (1.5-8.5); NEUTROPHILS % 44.1 % (36.0-66.0); RED BLOOD COUNT 4.32 10^6/uL (4.00-5.40); WHITE BLOOD COUNT 5.9 10^3/uL (4.0-10.0)
[2019-06-14 16:50] LABS: PLATELET COUNT, AUTOMATED 97 10^3/uL (150-450)
[2019-06-14 17:16] LABS: ALBUMIN 3.2 GM/DL (3.2-5.2); ALT/SGPT 33 U/L (12-78); BILIRUBIN,TOTAL 1.3 MG/DL (0.2-1.0); BLOOD UREA NITROGEN 13 MG/DL (7-18); CALCIUM LEVEL 8.5 MG/DL (8.8-10.2); CARBON DIOXIDE LEVEL 27 MEQ/L (21-32); CHLORIDE LEVEL 109 MEQ/L (98-107); CHOLESTEROL LEVEL 52 MG/DL (<200); CREATININE FOR GFR 0.61 MG/DL (0.55-1.30); GLOMERULAR FILTRATION RATE > 60.0 (>45); GLUCOSE, FASTING 110 MG/DL (70-100); HDL CHOLESTEROL 23 MG/DL (>40); HEMOGLOBIN A1c 5.4 %; LDL CHOLESTEROL 16 MG/DL (<100); NON-HDL-C 29 MG/DL; POTASSIUM SERUM 4.2 MEQ/L (3.5-5.1); SODIUM LEVEL 142 MEQ/L (136-145); THYROID STIMULATING HORMONE 0.533 uIU/ML (0.358-3.740); TOTAL PROTEIN 6.4 GM/DL (6.4-8.2); TRIGLYCERIDES LEVEL 67 MG/DL (<150)
== END ==
LOC: M SFHCLERA 11:36
PROVIDERS: ATTEND Family Medicine
DX: E11.9 Type 2 diabetes mellitus without complications (principal)

== ENCOUNTER → 2019-06-27 | Outpatient (CLI) | payer MEDICARE ==
[2019-06-27 13:36] LABS: ALT/SGPT 51 U/L (12-78); BILIRUBIN,DIRECT 0.4 MG/DL (0.0-0.2); BILIRUBIN,TOTAL 0.8 MG/DL (0.2-1.0); FERRITIN 618 NG/ML (8-252); IRON (FE) 174 UG/DL (50-170); THYROID STIMULATING HORMONE 0.903 uIU/ML (0.358-3.740); TOTAL IRON BINDING CAPACITY 187 UG/DL (250-450); TOTAL PROTEIN 6.1 GM/DL (6.4-8.2)
[2019-06-27 13:37] LABS: INR 1.43; PARTIAL THROMBOPLASTIN TIME 36.1 SECONDS (25.0-38.4); PROTHROMBIN TIME 17.1 SECONDS (11.8-14.0)
[2019-06-28 08:26] LABS: HEPATITIS B SURFACE ANTIBODY NEGATIVE (POSITIVE)
[2019-06-28 08:37] LABS: HEPATITIS B SURFACE ANTIGEN NEGATIVE (NEGATIVE)
[2019-06-28 09:04] LABS: HEPATITIS C VIRUS ABY INDEX 0.2 INDEX (<0.8)
[2019-06-28 09:07] LABS: HEPATITIS A ANTIBODY IGM NEGATIVE (NEGATIVE)
[2019-06-28 14:09] LABS: ALPHA 1 ANTITRYPSIN 146 mg/dL (101-187); ANTI-MITOCHONDRIAL ANTIBODY <20.0 Units (0.0-20.0); ANTI-SMOOTH MUSCLE ANTIBODY 9 Units (0-19)
[2019-06-29 07:46] LABS: ALBUMIN 3.26 GM/DL (3.29-5.55); ALBUMIN % 53.4 % (55.8-66.1); ALPHA-1-GLOBULIN % 4.6 % (2.9-4.9); ALPHA-1-GLOBULINS 0.28 GM/DL (0.17-0.41)
[2019-06-29 07:47] LABS: ALPHA-2-GLOBULINS 0.54 GM/DL (0.42-0.99); ALPHA-2-GLOBULINS % 8.8 % (7.1-11.8); BETA-1-GLOBULINS 0.27 GM/DL (0.28-0.60); BETA-1-GLOBULINS % 4.5 % (4.7-7.2); BETA-2-GLOBULINS 0.29 GM/DL (0.19-0.55); BETA-2-GLOBULINS % 4.8 % (3.2-6.5); GAMMA GLOBULIN % 23.9 % (11.1-18.8); GAMMA GLOBULINS 1.46 GM/DL (0.65-1.58)
[2019-06-29 14:06] LABS: ANTINUCLEAR ANTIBODIES DIRECT Negative (Negative); CERULOPLASMIN 18.5 mg/dL (19.0-39.0); HEPATITIS A IgG TOTAL Negative (Negative); LIVER-KIDNEY MICROSOMAL ABY <20.1 Units (0.0-20.0); TISSUE TRANSGLUTAMINASE IgA <2 U/mL (0-3); TISSUE TRANSGLUTAMINASE IgG <2 U/mL (0-5)
== END ==
LOC: M LAB 11:55
PROVIDERS: ATTEND Physician Assistant
DX: K76.0 Fatty (change of) liver, not elsewhere classified (principal); Z79.82 Long term (current) use of aspirin; Z79.899 Other long term (current) drug therapy

== ENCOUNTER → 2019-08-08 | Outpatient (CLI) | payer MEDICARE ==
[~2019-08-08] MED LIST changes: +AMIL5TAB4 PO; +ATOR1TAB21 PO
== END ==
LOC: M LABSMTC 12:12
PROVIDERS: ATTEND Family Medicine
DX: Z11.59 Encounter for screening for other viral diseases (principal); Z20.828 Contact with and (suspected) exposure to other viral communicable diseases

== ENCOUNTER → 2019-09-06 | Outpatient (CLI) | payer MEDICARE ==
--- NOTE | 2019-09-12 08:29 | RADONC ---
RADIATION ONCOLOGY FOLLOWUP NOTE DATE: 09/06/2019 This is a telemedicine visit. The patient was informed of the risks including security breech, technological failure, inability to perform a comprehensive physical exam which could delay or prevent an accurate diagnosis, and potential complications from treatment decisions rendered over a telemedicine platform. The patient understands and consented to the use of telehealth services phone only. CHART #: [id number] DIAGNOSIS: Right breast cancer. STAGE: 0, [id number]. ECOG PERFORMANCE STATUS: 0. FOLLOWUP NOTE: Ms. Kiser is a very pleasant 63-year-old white female with the diagnosis of a stage 0, [id number], ductal carcinoma in situ of the right breast who is presenting to us today for routine followup visit 1 year and 4 months post completion of external beam radiation therapy. The patient presents today reporting that she is doing quite well with no complaints at this time related to her radiation therapy or disease. She has no breast or bone pain. REVIEW OF SYSTEMS: The patient's review of systems is noncontributory. Denies nausea, vomiting, fevers, chills, night sweats, diplopia, headaches, anxiety or depression, anorexia, weight loss, visual disturbances, chest pain, urinary or bowel difficulties, bone pain, or neurological problems. PHYSICAL EXAMINATION: Physical examination was deferred as per COVID-19 precautions. This was a telephone consult. ASSESSMENT: The patient is clinically doing quite well at this point. I have scheduled her to see me again in 6 months for further followup. She will also continue to be followed by her medical oncologist as well. cc: MD Renata Smith MD Daniel Krebs, MD
== END ==
LOC: M ONCR 09:29
PROVIDERS: ATTEND Radiology Radiation Oncology
DX: D05.11 Intraductal carcinoma in situ of right breast (principal)

== ENCOUNTER → 2019-10-10 | Outpatient (CLI) | payer MEDICARE ==
[~2019-10-10] MED LIST changes: +ALLE1TAB23 PO; +ANAS1TAB2 PO; -ASPI81TA85 PO; +ASPI81TA86 PO; +B-12100021 PO; +CITA20TA6 PO; +COLA100C5 PO; +DIPH50CA PO; +LOSA25TA14 PO; +PANT40TA29 PO; -PANT40TA3 PO; +VITA400C53 PO
[2019-10-10 17:48] LABS: EOS # 0.3 10^3/uL (0.0-0.5); HEMATOCRIT 38.4 % (36.0-47.0); HEMOGLOBIN 12.1 g/dl (12.0-15.5); LYMPH % 47.3 % (24.0-44.0); MEAN CORPUSCULAR HEMOGLOBIN 30.9 pg (27.0-33.0); MEAN CORPUSCULAR HGB CONC 31.5 g/dl (32.0-36.5); MONO # 0.4 10^3/uL (0.0-0.8); MONO % 9.3 % (0.0-5.0); NEUTROPHILS # 1.5 10^3/uL (1.5-8.5); NEUTROPHILS % 36.2 % (36.0-66.0); RED BLOOD COUNT 3.92 10^6/uL (4.00-5.40); WHITE BLOOD COUNT 4.2 10^3/uL (4.0-10.0)
[2019-10-10 17:55] LABS: PLATELET COUNT, AUTOMATED 73 10^3/uL (150-450)
[2019-10-10 18:02] LABS: ALBUMIN 3.1 GM/DL (3.2-5.2); ALT/SGPT 49 U/L (12-78); BILIRUBIN,TOTAL 1.1 MG/DL (0.2-1.0); BLOOD UREA NITROGEN 16 MG/DL (7-18); CALCIUM LEVEL 8.6 MG/DL (8.8-10.2); CARBON DIOXIDE LEVEL 28 MEQ/L (21-32); CHLORIDE LEVEL 112 MEQ/L (98-107); CREATININE FOR GFR 0.56 MG/DL (0.55-1.30); FERRITIN 161 NG/ML (8-252); GLOMERULAR FILTRATION RATE > 60.0 (>45); GLUCOSE, FASTING 92 MG/DL (70-100); IRON (FE) 73 UG/DL (50-170); LDH LACTATE DEHYDROGENASE 230 U/L (84-246); PERCENT SATURATION 39.5 % (13.2-45.0); POTASSIUM SERUM 4.1 MEQ/L (3.5-5.1); SODIUM LEVEL 146 MEQ/L (136-145); TOTAL IRON BINDING CAPACITY 185 UG/DL (250-450); TOTAL PROTEIN 5.9 GM/DL (6.4-8.2)
== END ==
LOC: M LAB 16:13
PROVIDERS: ATTEND Internal Medicine Hematology & Oncology
DX: D05.11 Intraductal carcinoma in situ of right breast (principal)

== ENCOUNTER → 2019-11-27 | Outpatient (CLI) | payer MEDICARE ==
[2019-11-27 13:33] LABS: TOTAL PROTEIN 5.6 GM/DL (6.4-8.2)
[2019-11-27 14:00] LABS: HEMOGLOBIN A1c 5.5 %
[2019-11-27 14:06] LABS: FOLATE 5.7 NG/ML (>5.4); VITAMIN B12 LEVEL 1929 PG/ML (247-911)
[2019-11-30 13:06] LABS: ALBUMIN 3.03 GM/DL (3.29-5.55); ALBUMIN % 54.1 % (55.8-66.1); ALPHA-1-GLOBULINS 0.28 GM/DL (0.17-0.41); ALPHA-2-GLOBULINS 0.43 GM/DL (0.42-0.99); ALPHA-2-GLOBULINS % 7.7 % (7.1-11.8); BETA-1-GLOBULINS 0.26 GM/DL (0.28-0.60); BETA-1-GLOBULINS % 4.6 % (4.7-7.2); BETA-2-GLOBULINS 0.26 GM/DL (0.19-0.55); BETA-2-GLOBULINS % 4.7 % (3.2-6.5); GAMMA GLOBULIN % 23.9 % (11.1-18.8); GAMMA GLOBULINS 1.34 GM/DL (0.65-1.58)
[2019-12-02 18:10] LABS: VITAMIN B1 LEVEL WHOLE BLOOD 97.7 nmol/L (66.5-200.0); VITAMIN B6,PYRIDOXAL PHOSPHATE 3.1 ug/L (2.0-32.8); VITAMIN E(ALPHA TOCOPHEROL) 4.3 mg/L (9.0-29.0); VITAMIN E(GAMMA TOCOPHEROL) 0.8 mg/L (0.5-4.9)
== END ==
LOC: M LAB 09:54
PROVIDERS: ATTEND Psychiatry & Neurology Neurology
DX: E11.9 Type 2 diabetes mellitus without complications (principal); E51.9 Thiamine deficiency, unspecified; Z79.82 Long term (current) use of aspirin; Z79.899 Other long term (current) drug therapy; Z79.84 Long term (current) use of oral hypoglycemic drugs

== ENCOUNTER → 2020-01-18 | Outpatient (CLI) | payer MEDICARE ==
--- NOTE | 2020-01-18 10:30 | REPMRS ---
Patient History The patient states she had a clinical breast exam in July 2019. Family history of colorectal cancer at age 50 or over in maternal aunt, unknown cancer at age 90 in father, ovarian cancer at age 60 in maternal aunt, unknown cancer at age 60 in maternal aunt. Radiation therapy of the right breast, 2019. Malignant radio exam breast specimen of the right breast, February 04, 2018. Malignant localization of breast nodule of the right breast, February 04, 2018. High risk radio exam breast specimen of the right breast, January 19, 2018. High risk stereotatic loc for ea lesion of the right breast, January 19, 2018. Taking tamoxifen beginning at age 1. Digital Woman Screen Mammo: January 18, 2020 - Exam #: [id number] Bilateral CC and MLO view(s) were taken. Technologist: Technologist Mehnaz Prior study comparison: January 16, 2019, bilateral digital mammo screening bilat, performed at [facility]. December 29, 2017, bilateral digital mammo screening bilat, performed at [facility]. July 15, 2016, digital woman screen mammo performed at [facility]. FINDINGS: There are scattered fibroglandular densities. The Volpara volumetric breast density category is:B. There are stable post treatment changes in the right breast. There has been no change in the appearance of the mammogram from the prior studies. There is a mild amount of scattered fibroglandular density which is fairly symmetric. There is no interval development of dominant mass, architectural distortion, or grouped microcalcification suggestive of malignancy. 3-D tomosynthesis shows no additional findings. Assessment: BI-RADS/ACR category 2 mammogram. Benign Findings. Recommendation Routine screening mammogram of both breasts in 1 year (for women over age 40). This mammogram was interpreted with the aid of an FDA-approved computer-aided dectection system. Electronically Signed By: Tito Zabala MD 01/18/20 [id number]
== END ==
LOC: M WHC 09:04
PROVIDERS: ATTEND Internal Medicine Hematology & Oncology
DX: Z12.31 Encounter for screening mammogram for malignant neoplasm of breast (principal); Z80.0 Family history of malignant neoplasm of digestive organs; Z80.41 Family history of malignant neoplasm of ovary; Z85.3 Personal history of malignant neoplasm of breast

== ENCOUNTER → 2020-01-29 | Outpatient (CLI) | payer MEDICARE ==
[2020-01-29 14:30] LABS: BASO % 1.2 % (0.0-1.0); EOS # 0.1 10^3/uL (0.0-0.5); EOS % 2.8 % (0.0-3.0); HEMATOCRIT 37.5 % (36.0-47.0); HEMOGLOBIN 11.9 g/dl (12.0-15.5); LYMPH # 0.7 10^3/uL (1.5-5.0); LYMPH % 27.4 % (24.0-44.0); MEAN CORPUSCULAR HEMOGLOBIN 28.8 pg (27.0-33.0); MEAN CORPUSCULAR HGB CONC 31.7 g/dl (32.0-36.5); MEAN CORPUSCULAR VOLUME 90.8 fl (80.0-96.0); MONO # 0.4 10^3/uL (0.0-0.8); MONO % 17.1 % (0.0-5.0); NEUTROPHILS # 1.3 10^3/uL (1.5-8.5); NEUTROPHILS % 51.5 % (36.0-66.0); RED BLOOD COUNT 4.13 10^6/uL (4.00-5.40); WHITE BLOOD COUNT 2.5 10^3/uL (4.0-10.0)
[2020-01-29 14:34] LABS: PLATELET COUNT, AUTOMATED 64 10^3/uL (150-450)
[2020-01-29 14:51] LABS: ALBUMIN 2.7 GM/DL (3.2-5.2); ALT/SGPT 23 U/L (12-78); BLOOD UREA NITROGEN 16 MG/DL (7-18); CALCIUM LEVEL 8.2 MG/DL (8.8-10.2); CARBON DIOXIDE LEVEL 25 MEQ/L (21-32); CHLORIDE LEVEL 110 MEQ/L (98-107); FERRITIN 44 NG/ML (8-252); GLOMERULAR FILTRATION RATE > 60.0 (>45); GLUCOSE, FASTING 160 MG/DL (70-100); IRON (FE) 61 UG/DL (50-170); LDH LACTATE DEHYDROGENASE 209 U/L (84-246); PERCENT SATURATION 24.7 % (13.2-45.0); POTASSIUM SERUM 3.9 MEQ/L (3.5-5.1); SODIUM LEVEL 140 MEQ/L (136-145); TOTAL IRON BINDING CAPACITY 247 UG/DL (250-450)
== END ==
LOC: M LAB 13:18
PROVIDERS: ATTEND Internal Medicine Medical Oncology
DX: D05.10 Intraductal carcinoma in situ of unspecified breast (principal)

== ENCOUNTER → 2020-02-12 | Outpatient (CLI) | payer MEDICARE ==
--- NOTE | 2020-02-12 18:31 | DEXA ---
INDICATION: OSTEOPENIA. COMPARISON: October 20, 2010.. TECHNIQUE: Bone density was measured using dual-energy x-ray absorptionmetry (DEXA). FINDINGS: AP SPINE L1-L4 BMD 1.075 g/cm2 Young Adult T-Score -1.0 Age Matched Z-Score 0.6. LT FEMUR, TOTAL BMD 0.998 g/cm2 Young Adult T-Score -0.1 Age Matched Z-Score 1.2. LT NECK BMD 0.904 g/cm2 Young Adult T-Score -1.0 Age Matched Z-Score 0.6. RT FEMUR, TOTAL BMD 0.977 g/cm2 Young Adult T-Score -0.2 Age Matched Z-Score 1.0. RT NECK BMD 0.899 g/cm2 Young Adult T-Score -1.0 Age Matched Z-Score 0.5. IMPRESSION: There is low bone density of the spine. There is low bone density of the left hip. There is low bone density of the right hip. The density of the spine has increased 6.5% since the initial exam on October 20, 2006. The density of the spine increased 9.0% since most recent exam on October 20, 2010. The density of the left hip has increased 4.0% since initial exam on October 20, 2006. The density of the left hip has increased 0.3% since most recent exam on October 20, 2010. The density of the right hip has increased 6.1% since the initial exam on October 20, 2006. The density of the right hip has increased 2.3% since the most recent exam on October 20, 2010. FOLLOW-UP: Recommendation for the next bone density exam: 2 years. <Electronically signed by Tito Zabala > 02/12/20 [id number]
== END ==
LOC: M WHC 12:29
PROVIDERS: ATTEND Internal Medicine Medical Oncology
DX: Z13.820 Encounter for screening for osteoporosis (principal); M85.88 Other specified disorders of bone density and structure, other site; M85.851 Other specified disorders of bone density and structure, right thigh; M85.852 Other specified disorders of bone density and structure, left thigh

== ENCOUNTER 2020-02-20 21:49 | Observation (INO) | payer MEDICARE ==
[~2020-02-20] VITALS: Ht 157.5 cm; Wt 76.5 kg
[2020-02-20] MEDS ORDERED: ISOVUE-370 76% 100ML VIAL As Ordered ONE (22:11)
[2020-02-20 22:20] LABS: BASO # 0.1 10^3/uL (0.0-0.2); BASO % 1.4 % (0.0-1.0); EOS # 0.3 10^3/uL (0.0-0.5); EOS % 5.6 % (0.0-3.0); HEMATOCRIT 40.3 % (36.0-47.0); HEMOGLOBIN 12.6 g/dl (12.0-15.5); LYMPH # 2.4 10^3/uL (1.5-5.0); LYMPH % 47.3 % (24.0-44.0); MEAN CORPUSCULAR HEMOGLOBIN 28.4 pg (27.0-33.0); MEAN CORPUSCULAR HGB CONC 31.3 g/dl (32.0-36.5); MEAN CORPUSCULAR VOLUME 90.8 fl (80.0-96.0); MONO # 0.6 10^3/uL (0.0-0.8); MONO % 10.9 % (0.0-5.0); NEUTROPHILS # 1.8 10^3/uL (1.5-8.5); NEUTROPHILS % 34.8 % (36.0-66.0); RED BLOOD COUNT 4.44 10^6/uL (4.00-5.40); WHITE BLOOD COUNT 5.2 10^3/uL (4.0-10.0)
[2020-02-20 22:22] LABS: PLATELET COUNT, AUTOMATED 94 10^3/uL (150-450)
[2020-02-20 22:31] LABS: INR 1.3; PROTHROMBIN TIME 16.5 SECONDS (12.5-14.3)
[2020-02-20 22:32] LABS: PARTIAL THROMBOPLASTIN TIME 35.3 SECONDS (24.2-38.5)
--- NOTE | 2020-02-20 22:41 | REPVR ---
PROCEDURE INFORMATION: Exam: CT Head Without Contrast Exam date and time: 02/20/2020 10:24 PM Age: 64 years old Clinical indication: Other: CVA - nursing interventions must not delay CT TECHNIQUE: Imaging protocol: Computed tomography of the head without contrast. Radiation optimization: All CT scans at this facility use at least one of these dose optimization techniques: automated exposure control; mA and/or kV adjustment per patient size (includes targeted exams where dose is matched to clinical indication); or iterative reconstruction. Other technique: STROKE PROTOCOL was implemented. COMPARISON: No relevant prior studies available. FINDINGS: Brain: 9 mm age indeterminate hypoattenuating area of ischemic changes in the deep left frontal white matter. Cerebral ventricles: No ventriculomegaly. Bones/joints: Unremarkable. No acute fracture. Paranasal sinuses: Visualized sinuses are unremarkable. No fluid levels. Mastoid air cells: Visualized mastoid air cells are well aerated. Soft tissues: Unremarkable. IMPRESSION: 9 mm age indeterminate hypoattenuating area of ischemic changes in the deep left frontal white matter. ASSESSMENT: ASPECTS ([place] Stroke Program Early CT Score) is 9. Electronically signed by: Elias Mckeon On 02/20/2020 22:41:39 PM
[2020-02-20 22:45] LABS: BLOOD UREA NITROGEN 18 MG/DL (7-18); CALCIUM LEVEL 7.9 MG/DL (8.8-10.2); CARBON DIOXIDE LEVEL 27 MEQ/L (21-32); CHLORIDE LEVEL 111 MEQ/L (98-107); CK-MB VALUE MASS < 1.0 NG/ML (<3.6); CPK CREATINE PHOSPHOKINASE 42 U/L (26-192); CREATININE FOR GFR 0.65 MG/DL (0.55-1.30); GLOMERULAR FILTRATION RATE > 60.0 (>45); GLUCOSE, FASTING 102 MG/DL (70-100); MB/CK RELATIVE INDEX 2.38 (< OR =4); POTASSIUM SERUM 3.9 MEQ/L (3.5-5.1); SODIUM LEVEL 143 MEQ/L (136-145); TROPONIN I < 0.02 NG/ML (< 0.10)
--- NOTE | 2020-02-20 23:07 | REPVR ---
PROCEDURE INFORMATION: Exam: CT Angiography Head With Contrast Exam date and time: 02/20/2020 10:24 PM Age: 64 years old Clinical indication: CVA - nursing interventions must not delay CT TECHNIQUE: Imaging protocol: Computed tomography angiography of the head with intravenous contrast. 3D rendering (Not supervised by radiologist): MIP and/or 3D reconstructed images were created by the technologist. Radiation optimization: All CT scans at this facility use at least one of these dose optimization techniques: automated exposure control; mA and/or kV adjustment per patient size (includes targeted exams where dose is matched to clinical indication); or iterative reconstruction. Contrast material: ISOVUE 370; Contrast volume: 100 ml; Contrast route: INTRAVENOUS (IV); COMPARISON: No relevant prior studies available. FINDINGS: ANTERIOR CIRCULATION: Right internal carotid artery: Unremarkable. Intracranial segment is patent with no significant stenosis. No aneurysm. Right middle cerebral artery: Unremarkable. No occlusion or significant stenosis. No aneurysm. Right anterior cerebral artery: Unremarkable. No occlusion or significant stenosis. No aneurysm. Left internal carotid artery: Unremarkable. Intracranial segment is patent with no significant stenosis. No aneurysm. Left middle cerebral artery: Unremarkable. No occlusion or significant stenosis. No aneurysm. Left anterior cerebral artery: Unremarkable. No occlusion or significant stenosis. No aneurysm. POSTERIOR CIRCULATION: Right vertebral artery: Unremarkable. No occlusion or significant stenosis. No aneurysm. Left vertebral artery: Unremarkable. No occlusion or significant stenosis. No aneurysm. Basilar artery: Unremarkable. No occlusion or significant stenosis. No aneurysm. Right posterior cerebral artery: Unremarkable. No occlusion or significant stenosis. No aneurysm. Left posterior cerebral artery: Unremarkable. No occlusion or significant stenosis. No aneurysm. Bones/joints: Unremarkable. No acute fracture. Soft tissues: Unremarkable. IMPRESSION: No large vessel stenosis or occlusion. THIS REPORT CONTAINS FINDINGS THAT MAY BE CRITICAL TO PATIENT CARE. The study was personally discussed on the telephone with care provider TREY SMALLWOOD on 02/20/2020 11:07 PM EST. The results were understood and acknowledged. Electronically signed by: Elias Mckeon On 02/20/2020 23:07:34 PM
--- NOTE | 2020-02-20 23:12 | REPVR ---
PROCEDURE INFORMATION: Exam: CT Angiography Neck With Contrast Exam date and time: 02/20/2020 10:24 PM Age: 64 years old Clinical indication: CVA - nursing interventions must not delay CT TECHNIQUE: Imaging protocol: Computed tomography angiography of the neck with intravenous contrast. 3D rendering (Not supervised by radiologist): MIP and/or 3D reconstructed images were created by the technologist. Radiation optimization: All CT scans at this facility use at least one of these dose optimization techniques: automated exposure control; mA and/or kV adjustment per patient size (includes targeted exams where dose is matched to clinical indication); or iterative reconstruction. Contrast material: ISOVUE 370; Contrast volume: 100 ml; Contrast route: INTRAVENOUS (IV); COMPARISON: No relevant prior studies available. FINDINGS: Right common carotid artery: No stenosis. No dissection or occlusion. Right internal carotid artery: No stenosis of the extracranial segment. No dissection or occlusion. Right external carotid artery: No occlusion or stenosis of the origin. Right vertebral artery: No stenosis. No dissection or occlusion. Left common carotid artery: No stenosis. No dissection or occlusion. Left internal carotid artery: No stenosis of the extracranial segment. No dissection or occlusion. Left external carotid artery: No occlusion or stenosis of the origin. Left vertebral artery: No stenosis. No dissection or occlusion. Bones/joints: No acute fracture. Soft tissues: Normal. No significant soft tissue swelling. IMPRESSION: No stenosis or occlusion. REFERENCES: NASCET CRITERIA. The degree of internal carotid artery stenosis is based on NASCET criteria. Normal is no stenosis. Mild is less than 50% stenosis. Moderate is 50-69% stenosis. Severe is 70% to 99% stenosis. Total occlusion is no detectable patent lumen. THIS REPORT CONTAINS FINDINGS THAT MAY BE CRITICAL TO PATIENT CARE. The study was personally discussed on the telephone with care provider TREY SMALLWOOD on 02/20/2020 11:12 PM EST. The results were understood and acknowledged. Electronically signed by: Elias Mckeon On 02/20/2020 23:12:19 PM
--- NOTE | 2020-02-20 23:13 | REPVR ---
PROCEDURE INFORMATION: Exam: XR Chest, 1 View Exam date and time: 02/20/2020 10:26 PM Age: 64 years old Clinical indication: Shortness of breath; Additional info: CVA TECHNIQUE: Imaging protocol: XR of the chest Views: 1 view. COMPARISON: No relevant prior studies available. FINDINGS: Lungs: No focal airspace consolidation. Pleural space: Unremarkable. No pleural effusion. No pneumothorax. Heart/Mediastinum: Unremarkable. No cardiomegaly. Bones/joints: Ill-defined sclerotic lesion in the proximal left humerus is partially visualized, uncertain significance. IMPRESSION: 1. No focal airspace consolidation. 2. Ill-defined sclerotic lesion in the proximal left humerus is partially visualized, uncertain significance. Electronically signed by: Elias Mckeon On 02/20/2020 23:13:17 PM
--- NOTE | 2020-02-21 00:38 | REPVR ---
PROCEDURE INFORMATION: Exam: MR Head Without Contrast Exam date and time: 02/20/2020 11:54 PM Age: 64 years old Clinical indication: Altered mental status/memory loss; Additional info: Rule out stroke, left drift, poor balance TECHNIQUE: Imaging protocol: MR of the head without contrast. COMPARISON: CT Head without contrast 2020-02-20 22:11 FINDINGS: Brain: No diffusion restriction to suggest acute ischemia or infarction. Mild scattered FLAIR hyperintense foci within the supratentorial deep and subcortical white matter suggesting mild chronic small vessel ischemic disease. No midline shift, mass, or fluid collection is present. Diffuse cerebral age related volume loss. The brainstem, posterior fossa and cervical medullary junction are preserved. Couple small punctate foci of chronic hemosiderin deposition including in the left caudate nucleus. Ovoid T2 signal hyperintensity in the deep left frontal white matter measuring 8 mm with diffusion signal but no ADC hypointensity, evidence of T2 shine through, could be a small subacute to chronic lacunar infarct. Cerebral ventricles: Ventricular enlargement proportional to volume loss. Bones/joints: Unremarkable. Paranasal sinuses: Normal as visualized. No acute sinusitis. Mastoid air cells: Small left mastoid effusion. Orbits: Unremarkable. Soft tissues: Unremarkable. IMPRESSION: 1. Ovoid T2 signal hyperintensity in the deep left frontal white matter measuring 8 mm with diffusion signal but no ADC hypointensity, evidence of T2 shine through, could be a small subacute to chronic lacunar infarct. 2. No acute ischemia or infarct. Electronically signed by: Elias Mckeon On 02/21/2020 00:38:08 AM
[2020-02-21] MEDS ORDERED: GLUCAGON INJ 1MG VIAL SC PRN (02:00)
[2020-02-21] MEDS ORDERED: ASPIRIN 81 MG CHEW TABLET PO ONE (02:00)
[2020-02-21] MEDS ORDERED: GLUCOSE 4GM CHEW TABLET PO PRN (02:00)
[2020-02-21] MEDS ORDERED: MOM 30ML SUSPENSION UDC PO PRN (02:00)
[2020-02-21] MEDS ORDERED: MAALOX 30 ML SUSP *UDC PO PRN (02:00)
[2020-02-21] MEDS ORDERED: DEXTROSE 50% 50 ML SYRINGE IV PRN (02:00)
[2020-02-21] MEDS ORDERED: ACETAMINOPHEN TAB 650MG DOSE (2X325MG) PO PRN (02:00)
--- NOTE | 2020-02-21 02:02 | HPEPDOC ---
[facility] Medical History & Physical Date of Admission Feb 21, 2020 Date of Service: Feb 21, 2020 Primary Care Physician: KHAI PEREZ DO Attending Physician: WILMAR NORIEGA MD History and Physical TIME OF SERVICE: 259AM CHIEF COMPLAINT: wobbly legs HISTORY OF PRESENT ILLNESS: This 64-year-old female reports having episodes where her legs are wobbly for several years. Over the last few months she has had episodes of back pain, followed by a headaches, which are followed by feeling like her legs are wobbly and falling. She denies being evaluated by PT or having a walker, but her children have purchased a cane for her. Over the last few weeks she has occasionally dropped objects that she is holding in her right hand. Yesterday evening at around 8 PM she noticed that her legs were wobbly while she was having a shower. Later on in the evening while she was trying to walk she had another episode where her legs were wobbly which caused her to lean to the left and hold onto the wall to stop herself from falling. She noted that it was unusual that these episodes were not proceeded by the usual backache and headache and felt more severe than usual, therefore, she called her son to bring her to the hospital for evaluation. She denied falling, hitting her head or losing consciousness last night. She also denied feeling like the ground was moving beneath her, having ringing in her ears, having palpitations or sensation of her heart skipping any beats. By the time she arrived in the ER just before midnight her symptoms had resolved and she was out of the tPA window. ordered CT of the head, CTA of the head and neck & MRI of the brain which showed a chronic to subacute left lacunar infarct; he discussed these findings with Neuro fund controller and informed me that they would evaluate the patient in the morning. 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 s/p lumpectomy (02/04/2018) & reexcision 02/21/2019 showing atypical ductal hyperplasia s/p adjuvant radiation tx (completed 04/05/2018) was on tamoxifen for secondary prevention, but was switched to Anastrozole at the end of Jan 2020 History of Iron deficiency anemia (neg colonoscopy 06/2018) Fatty liver with secondary splenomegaly Dyslipidemia GERD Depression Class 1 Obesity Cholecystectomy Resection of polyp at sigmoid colon Resection of tubular adenoma Multiple resections of Basal Cell carcinoma (on back, bilateral cheeks) SOCIAL HISTORY: + Former smoker (2 packs per day for 20 yrs quit in 2008) - Alcohol - Recreational drugs Retired used to work as a Scientist at [employer] FAMILY HISTORY: Father & Maternal Aunt - Lung Cancer Brother - TIAs Maternal Aunt - Cervical cancer ALLERGIES: Please see below. HOME MEDICATIONS: Please see below. PHYSICAL EXAMINATION: Vital Signs Date Time Temp Pulse Resp B/P (MAP) Pulse Ox O2 Delivery O2 Flow Rate FiO2 02/20/20 21:51 97.3 87 18 116/72 (87) 97 Room Air GEN: well-nourished / well developed/ NAD INTEGUMENT: not flushed/ not jaundice HEENT: lips acyanotic /mucus membranes dry & pink CVS: RRR/NMRG/ no lower extremity edema LUNGS: able to speak full sentences without stopping to take a breath / no coughing / lungs are clear to auscultation bilaterally on room air ABDOMEN: Contour ( obese) MSK/EXTREMITIES: NCAT / range of motion intact in all 4 extremities NEURO: CN 2-12 are grossly intact, tongue mid-line, no nystagmus / speech is not dysarthric / strength is 5/5 except for hip flexion where strength is 4/5 with left hip flexion and +4/5 with right hip flexion / DTRs at brachioradialis +2 , biceps +1 , patellar +1 / no ankle clonus / normal finger to nose test PSYCH: alert and oriented to person place and time/ able to understand and follow all commands LABORATORY DATA: 02/20/20 22:04: Bedside Glucose (Misc Panel) 103 02/20/20 22:07: Immature Granulocyte % (Auto) 0.0, Neutrophils (%) (Auto) 34.8L, Lymphocytes (%) (Auto) 47.3H, Monocytes (%) (Auto) 10.9H, Eosinophils (%) (Auto) 5.6H, Basophils (%) (Auto) 1.4H, Neutrophils # (Auto) 1.8, Lymphocytes # (Auto) 2.4, Monocytes # (Auto) 0.6, Eosinophils # (Auto) 0.3, Basophils # (Auto) 0.1, Nucleated Red Blood Cells % (auto) 0.0, Immature Platelet Fraction 3.9, Prothrombin Time 16.5H, Prothromb Time International Ratio 1.30, Activated Partial Thromboplast Time 35.3, Anion Gap 5L, Glomerular Filtration Rate > 60.0, Calcium Level 7.9L, Total Creatine Kinase 42, Creatine Kinase MB < 1.0, Creatine Kinase MB Relative Index 2.38, Troponin I < 0.02 02/20/20 22:36: Urine Color YELLOW, Urine Appearance HAZY, Urine pH 5.0, Urine Specific [place] 1.054, Urine Protein NEGATIVE, Urine Glucose (UA) NEGATIVE, Urine Ketones NEGATIVE, Urine Blood NEGATIVE, Urine Nitrite NEGATIVE, Urine Bilirubin NEGATIVE, Urine Urobilinogen 4.0H, Urine Leukocyte Esterase NEGATIVE, Urine WBC (Auto) 0, Urine RBC (Auto) 4H, Urine Hyaline Casts (Auto) 0, Urine Bacteria (Auto) NEGATIVE, Urine Squamous Epithelial Cells 20, Urine Mucus (Auto) MODERATE, Urine Sperm (Auto) IMAGING: Chest xray "IMPRESSION: 1. No focal airspace consolidation. 2. Ill-defined sclerotic lesion in the proximal left humerus is partially visualized, uncertain significance." CT head "IMPRESSION: 9 mm age indeterminate hypoattenuating area of ischemic changes in the deep left frontal white matter." CTA neck "IMPRESSION: No stenosis or occlusion." CTA head "IMPRESSION: No large vessel stenosis or occlusion." MRI brain "IMPRESSION: 1. Ovoid T2 signal hyperintensity in the deep left frontal white matter measuring 8 mm with diffusion signal but no ADC hypointensity, evidence of T2 shine through, could be a small subacute to chronic lacunar infarct. 2. No acute ischemia or infarct. " ASSESSMENT: is a 64-year-old with a history of newly diagnosed subacute to chronic left lacunar infarct, HTN, NIDDM, breast cancer, fatty liver, GERD, depression, and obesity who presented with c/o transient episodes of wobbly legs and left- sided drift, which may be due to TIA. PLAN: 1. Possible TIA -Wobbly legs and left sided drift have resolved -EKG showed NSR w a rate of 75 -The patient reports that she has an appointment scheduled with in Mar Plan: admit to medical floor / telemetry /fall precautions/ frequent neurochecks / PT/OT consults / ASA 325 mg PO now / increase atorvastatin from 20 to 40mg daily / f/u A1C, TSH, & 2D Echo, if work up is neg day time team may consider Hy percoag work up with ESR, CRP, PRETTY, Lupus anticoagulant, Protein C & S, Antithrombin 3, Factor V ect/ will ask day time team to consult Neurology / hold Trazadone 2. Newly diagnosed chronic to subacute left lacunar infarct Plan: c/w ASA, statin, target SBP <130/80 bc of co-existing DM 3. Resistant HTN Plan: c/w amiloride, carvedilol & losartan 4. NIDDM Plan: diabetic diet / f/u accuchecks & A1C / hypoglycemia protocol / sliding scale insulin / hold oral anti-glycemics 5. Sclerotic lesion at the proximal left humerus Plan: f/u w PCP for CT of the humerus +/- to metastatic dz on an out patient basis 6. ER+ DE + Breast Cancer Plan: c/w Anastrozole / f/u w Onc as scheduled on an out pt basis 7. Thrombocytopenia likely due to reduced thrombopoietin production bc of Fatty liver Plan: f/u w PCP for GI referral to determine if she needs a liver biopsy if not already done on an out pt basis 8. GERD Plan: PPI 9. Depression Plan: citalopram 10. Class 1 Obesity complicates care Plan: she pt can f/u w her PCP for STOP BANG questionnaire, bioprocess engineer consult / recommend cardiovascular exercise for 40 min 4-5 days a week DVT PROPHYLAXIS: lovenox DISPOSITION: admitted under observation, likely home later on today after completing work-up, will not order additional blood work bc initial CBC and BMP were unremarkable Home Medications Scheduled Amiloride HCl (Amiloride HCl) 5 Mg Tablet, 5 MG PO DAILY Anastrozole (Anastrozole) 1 Mg Tablet, 1 TAB PO DAILY Aspirin (Aspirin) 81 Mg Tab.chew, 81 MG PO QHS Atorvastatin Calcium (Atorvastatin Calcium) 20 Mg Tablet, 20 MG PO DAILY Carvedilol (Carvedilol) 3.125 Mg Tab, 3.125 MG PO DAILY PRESCRIPTION IS FOR BID, PATIENT STATES ONLY TAKING DAILY Citalopram Hydrobromide (Citalopram HBr) 20 Mg Tablet, 20 MG PO DAILY Cyanocobalamin (Vitamin B-12) (B-12) 1,000 Mcg Tablet, 1,000 MCG PO DAILY Docusate Sodium (Colace) 100 Mg Capsule, 1 CAP PO DAILY Losartan Potassium (Losartan Potassium) 25 Mg Tablet, 25 MG PO DAILY Magnesium Oxide (Magnesium Oxide) 400 Mg Tablet, 400 MG PO BID Metformin HCl (Metformin HCl) 500 Mg Tab, 500 MG PO QHS Pantoprazole Sodium (Pantoprazole Sodium) 40 Mg Tab, 40 MG PO DAILY Potassium Chloride (Potassium Chloride) 10 Meq Tab, 10 MEQ PO BID Trazodone HCl (Trazodone HCl) 150 Mg Tab, 150 MG PO QHS Vitamin E (Vitamin E) 400 Unit Capsule, 400 UNIT PO DAILY Scheduled PRN Diphenhydramine HCl (Diphenhydramine HCl) 25 Mg Capsule, 25 MG PO Q6H PRN for ALLERGY SYMPTOMS Allergies Coded Allergies: lisinopril (Verified Adverse Reaction, Mild, dry cough vomiting, 02/20/20) A-FIB/CHADSVASC A-FIB History Current/History of A-Fib/PAF?: No Current PO Anticoag Therapy: WILMAR Damico MD Feb 21, 2020 02:02
[2020-02-21] MEDS ORDERED: VITA400C53 PO (02:13)
[2020-02-21] MEDS ORDERED: MAGN400T3 PO (02:15)
[2020-02-21] MEDS ORDERED: ASPI1CHW3 PO (02:17)
[2020-02-21] MEDS ORDERED: DIPH25CA32 PO (02:17)
[2020-02-21 02:36] LABS: HEMOGLOBIN A1c 5.2 %
[2020-02-21] MEDS: PRAVASTATIN 20 MG TAB PO SCH ×2 (02:53→20:25)
[2020-02-21 04:15] VITALS: BP 113/68
[2020-02-21 05:30] LABS: CHOLESTEROL LEVEL 78 MG/DL (<200); CHOLESTEROL RISK RATIO 1.813 (<5); HDL CHOLESTEROL 43 MG/DL (>40); LDL CHOLESTEROL 23 MG/DL (<100); NON-HDL-C 35 MG/DL; TRIGLYCERIDES LEVEL 58 MG/DL (<150)
[2020-02-21 06:00] VITALS: BP 115/69
--- NOTE | 2020-02-21 07:18 | ECGEPIP ---
[facility] - ED Test Date: 2020-02-20 Pat Name: LILIA BRUNO Department: Room: [place] [address] Gender: Female Automation Controls Specialist: PIPER : [id number] Requested By: TREY TELLO Order Number: [id number] Reading MD: Elias Treviño Measurements Intervals [place] Rate: 75 P: 26 MA: 132 QRS: 14 QRSD: 89 T: 59 QT: 398 QTc: 447 Interpretive Statements SINUS RHYTHM LOW QRS VOLTAGE IN PRECORDIAL LEADS NONSPECIFIC T-WAVE ABNORMALITY Similar to tracing done 02-21-18 Electronically Signed on 02-21-2020 7:18:34 EST by Elias Treviño
[2020-02-21] MEDS: HumaLOG INSULIN (NovoLOG) PER UNIT SC SCH ×3 (07:30→17:30)
[2020-02-21] MEDS: aMILoride 5 MG TAB PO SCH (08:07)
[2020-02-21] MEDS: LOSARTAN 25 MG TAB PO SCH (08:08)
[2020-02-21] MEDS: PANTOPRAZOLE 40MG TAB (PROTONIX) PO SCH (08:08)
[2020-02-21] MEDS: CARVedilol 3.125 MG TAB PO SCH (08:09)
[2020-02-21] MEDS: ATORVASTATIN 20 MG TAB PO SCH (08:09)
[2020-02-21] MEDS: CitaloPRAM (CeleXA) 20 MG TAB PO SCH (08:09)
[2020-02-21] MEDS: MAGNESIUM OXIDE 400 MG TAB (MAG-OX) PO SCH ×2 (08:09→20:25)
[2020-02-21] MEDS: DOCUSATE SODIUM 100MG CAPSULE PO SCH (08:10)
[2020-02-21] MEDS: POTASSIUM CHLORIDE 10 MEQ SR TABLET PO SCH ×2 (08:10→20:24)
[2020-02-21] MEDS ORDERED: ENTER DRUG NAME HERE (PATIENT'S OWN MED) PO SCH (09:00)
[2020-02-21] MEDS ORDERED: ENOXAPARIN 40MG/0.4ML SYRINGE (J1650 PER 10MG) SC SCH (09:00)
[2020-02-21 13:52] VITALS: BP 111/69
[2020-02-21] MEDS ORDERED: ASPIRIN 81 MG CHEW TABLET PO SCH (21:00)
[2020-02-21] MEDS ORDERED: HumaLOG INSULIN (NovoLOG) PER UNIT SC SCH (21:00)
[2020-02-21] MEDS ORDERED: traZODone 50 MG TAB PO SCH (21:00)
[2020-02-21 22:00] VITALS: BP 113/70
[2020-02-22 06:00] VITALS: BP 102/57
[2020-02-22 06:35] LABS: CHOLESTEROL RISK RATIO 1.848 (<5)
[2020-02-22 07:05] VITALS: BP 108/73
[2020-02-22 07:06] VITALS: BP 129/85
[2020-02-22 07:07] VITALS: BP 124/82
[2020-02-22] MEDS: HumaLOG INSULIN (NovoLOG) PER UNIT SC SCH (07:30)
[2020-02-22] MEDS: POTASSIUM CHLORIDE 10 MEQ SR TABLET PO SCH (08:23)
[2020-02-22] MEDS: aMILoride 5 MG TAB PO SCH (08:23)
[2020-02-22 08:24] VITALS: BP 122/86
[2020-02-22] MEDS: MAGNESIUM OXIDE 400 MG TAB (MAG-OX) PO SCH (08:24)
[2020-02-22] MEDS: DOCUSATE SODIUM 100MG CAPSULE PO SCH (08:24)
[2020-02-22] MEDS: PANTOPRAZOLE 40MG TAB (PROTONIX) PO SCH (08:24)
[2020-02-22] MEDS: CitaloPRAM (CeleXA) 20 MG TAB PO SCH (08:24)
[2020-02-22] MEDS: ATORVASTATIN 20 MG TAB PO SCH (08:24)
[2020-02-22] MEDS: LOSARTAN 25 MG TAB PO SCH (08:24)
[2020-02-22] MEDS: CARVedilol 3.125 MG TAB PO SCH (08:24)
[2020-02-22] MEDS ORDERED: ATOR1TAB21 PO (08:52)
[2020-02-22] MEDS ORDERED: PNEUMOCOCCAL VACCINE 0.5ML SYRINGE (PNEUMOVAX 23) IM ONE (09:00)
[2020-02-22] MEDS ORDERED: ASPI325T57 PO (12:23)
--- NOTE | 2020-02-22 12:35 | DS.PDOC ---
Discharge Summary General Date of Admission Feb 21, 2020 at 01:47 Date of Discharge 02/22/20 Discharge Summary PROCEDURES PERFORMED DURING STAY: [None]. DISCHARGE DIAGNOSES: TIA Subacute to chronic left frontal lacunar infarct Thrombocytopenia Fatty liver with secondary splenomegaly with thrombocytopenia probably underlying cirrhosis. 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 HOSPITAL COURSE: is a 64-year-old with a history of newly diagnosed subacute to chronic left lacunar infarct, HTN, NIDDM, breast cancer, fatty liver, GERD, depression, and obesity who presented with c/o transient episodes of wobbly legs and left-sided drift, which may be due to TIA. TIA/ Subacute lacunar infarct in left frontal lobe Telemetry 36 hours no A fib Echo done report pending Discussed with Dr Almaraz will increase ASA to 325 mg and atorvastatin to 40 mg. Has follow up appointment with Dr Hall on 03/07/20 Resistant HTN c/w amiloride, carvedilol & losartan NIDDM with neuropathy Home meds Sclerotic lesion at the proximal left humerus f/u w PCP ER+ NC + Breast Cancer c/w Anastrozole Thrombocytopenia Has fatty liver with splenomegaly May have underlying Cirrhosis May need liver biopsy for diagnosis. GERD PPI Depression citalopram Obesity complicates care Insomnia Trazodone. DISCHARGE MEDICATIONS: Please see below. ALLERGIES: Please see below. PHYSICAL EXAMINATION ON DISCHARGE: VITAL SIGNS: Please see below. GEN: well-nourished / well developed/ NAD HEENT: lips acyanotic /mucus membranes moist & pink , anicteric CVS: RRR/NMRG/ no lower extremity edema LUNGS: ungs are clear to auscultation bilaterally ABDOMEN: Contour ( obese) , nontender, bowel sounds normal. MSK/EXTREMITIES: NCAT / range of motion intact in all 4 extremities NEURO: CN 2-12 are grossly intact, tongue mid-line, no nystagmus / speech is not dysarthric / strength is 5/5 except for hip flexion where strength is 4/5 with left hip flexion and +4/5 with right hip flexion , DTRs in both the lower extremities diminished. PSYCH: alert and oriented to person place and time/ able to understand and follow all commands LABORATORY DATA: Please see below. ACTIVITY: [As tolerated]. DIET: Carb consistent DISPOSITION: 01 Home, Self-Care. DISCHARGE INSTRUCTIONS: Follow up Dr Hall in 2 weeks Follow up with BRIANA in 1 week ITEMS TO FOLLOWUP ON ON OUTPATIENT: Echo report. DISCHARGE CONDITION: [Stable]. TIME SPENT ON DISCHARGE: 35 minutes. Vital Signs/I&Os Vital Signs Date Time Temp Pulse Resp B/P (MAP) Pulse Ox O2 Delivery O2 Flow Rate FiO2 02/22/20 08:24 122/86 02/22/20 08:24 76 02/22/20 06:00 98.2 18 96 02/21/20 13:52 Room Air I&O- Last 24 Hours up to 6 AM 02/22/20 06:00 Intake Total 720 ml Output Total 0 ml Balance 720 ml Laboratory Data Labs 24H Laboratory Tests 2 02/21/20 17:49: Bedside Glucose (Misc Panel) 92 02/21/20 20:36: Bedside Glucose (Misc Panel) 153H 02/22/20 05:40: Triglycerides Level 49, Total Cholesterol 61, LDL Cholesterol 18, Non-HDL Cholesterol (LDL + VLDL) 28, Total HDL Cholesterol 33L, Cholesterol/HDL Ratio 1.848 02/22/20 07:31: Bedside Glucose (Misc Panel) 87 FSBS Laboratory Tests Test 02/21/20 17:49 02/21/20 20:36 02/22/20 07:31 Range/Units Bedside Glucose (Misc Panel) 92 153 87 80-115 MG/DL Discharge Medications Scheduled Amiloride HCl (Amiloride HCl) 5 Mg Tablet, 5 MG PO DAILY, (Reported) Anastrozole (Anastrozole) 1 Mg Tablet, 1 TAB PO DAILY Aspirin (Aspirin) 81 Mg Tab.chew, 81 MG PO QHS, (Reported) Atorvastatin Calcium (Atorvastatin Calcium) 20 Mg Tablet, 40 MG PO DAILY Carvedilol (Carvedilol) 3.125 Mg Tab, 3.125 MG PO DAILY, (Reported) PRESCRIPTION IS FOR BID, PATIENT STATES ONLY TAKING DAILY Citalopram Hydrobromide (Citalopram HBr) 20 Mg Tablet, 20 MG PO DAILY, (Reported) Cyanocobalamin (Vitamin B-12) (B-12) 1,000 Mcg Tablet, 1,000 MCG PO DAILY, (Reported) Docusate Sodium (Colace) 100 Mg Capsule, 1 CAP PO DAILY, (Reported) Losartan Potassium (Losartan Potassium) 25 Mg Tablet, 25 MG PO DAILY, (Reported) Magnesium Oxide (Magnesium Oxide) 400 Mg Tablet, 400 MG PO BID, (Reported) Metformin HCl (Metformin HCl) 500 Mg Tab, 500 MG PO QHS, (Reported) Pantoprazole Sodium (Pantoprazole Sodium) 40 Mg Tab, 40 MG PO DAILY, (Reported) Potassium Chloride (Potassium Chloride) 10 Meq Tab, 10 MEQ PO BID, (Reported) Trazodone HCl (Trazodone HCl) 150 Mg Tab, 150 MG PO QHS, (Reported) Vitamin E (Vitamin E) 400 Unit Capsule, 400 UNIT PO DAILY, (Reported) Scheduled PRN Diphenhydramine HCl (Diphenhydramine HCl) 25 Mg Capsule, 25 MG PO Q6H PRN for ALLERGY SYMPTOMS, (Reported) Allergies Coded Allergies: lisinopril (Verified Adverse Reaction, Mild, dry cough vomiting, 02/20/20) ABHIJEET MORALES MD Feb 22, 2020 12:35
--- NOTE | 2020-02-27 10:48 | ECHO ---
DATE OF PROCEDURE: 02/21/2020 Age: 64 Gender: Female Height: 62 inches Weight: 171 pounds Body surface area: 1.79 m2 PATIENT LOCATION: Inpatient, Room 4220 REFERRING PHYSICIAN: Ashlyn Leahy MD INDICATION: Transient ischemic attack (TIA) MEASUREMENTS: 2D Measurements: RV 3.3 cm LV 4.7 cm Septum 1.1 cm Posterior wall 1.1 cm Aortic Root 3.2 cm LA 3.4 cm LVEF 75% Doppler Measurements: AV 1.46 msec LVOT 1.1 msec LVOT diameter 1.9 cm MV-E 79, A 67, E/A ratio 1.2 Early mitral deceleration time 198 msec E prime medial 6.1, A prime medial 7, E prime lateral 9.5 Average E/E prime ratio 10/PCWP 14.5 mmHg PV 0.8 msec Pulmonary artery acceleration time - inaccurate IVC 1.8 cm RVSP 29 mmHg COMMENTS: Normal sinus rhythm without intraventricular conduction disturbance. M-mode and two-dimensional echocardiography was performed with pulse, continuous wave, color flow, and tissue Doppler studies. Normal left ventricular size, wall thickness, and wall motion was hyperkinetic. Normal left atrial size and Doppler assessment of left ventricular (LV) diastolic function and estimated mean left atrial pressure. Normal right heart chamber sizes and motion and estimated pulmonary arterial pressure. Normal inferior vena cava (IVC) size and collapse against an elevated central venous pressure. Normal aortic dimensions. Normal appearing aortic valvular apparatus without inflow tract obstruction or insufficiency. Normal appearing mitral valvular apparatus and leaflet excursion with no posterior systolic buckling, but at least mild mitral insufficiency. Normal appearing tricuspid valve with trace insufficiency. No apparent intracardiac mass or pericardial effusion. If a cardiac source of embolic material is seriously suspect, would recommend a transesophageal echocardiogram. [facility]
== END 2020-02-22 10:51 | disposition home or self-care (01) ==
LOC: M ED 21:49 → M ED INP 21:50 → UNDOADMOB 02-21 01:47 → M ED INP 02-21 01:47 → ENRESERV 02-21 03:32 → M ED INP 02-21 04:15 → M MSPAV 02-21 04:15 → UNDODISOB 02-22 10:51
PROVIDERS: ADMIT Internal Medicine; ATTEND Internal Medicine Nephrology
DX: G45.9 Transient cerebral ischemic attack, unspecified (principal); I63.9 Cerebral infarction, unspecified; D69.6 Thrombocytopenia, unspecified; K76.0 Fatty (change of) liver, not elsewhere classified; R16.1 Splenomegaly, not elsewhere classified; M75.90 Shoulder lesion, unspecified, unspecified shoulder; I10 Essential (primary) hypertension; E11.9 Type 2 diabetes mellitus without complications; Z85.3 Personal history of malignant neoplasm of breast; E78.49 Other hyperlipidemia; Z17.0 Estrogen receptor positive status [ER+]; K21.9 Gastro-esophageal reflux disease without esophagitis; F32.9 Major depressive disorder, single episode, unspecified; E66.9 Obesity, unspecified; G47.00 Insomnia, unspecified; R26.9 Unspecified abnormalities of gait and mobility; M54.5 Low back pain; Z79.82 Long term (current) use of aspirin; Z79.84 Long term (current) use of oral hypoglycemic drugs; Z79.899 Other long term (current) drug therapy; Z88.8 Allergy status to other drugs, medicaments and biological substances; Z87.891 Personal history of nicotine dependence
CPT/HCPCS: 36415; 70450; 70496; 70498; 70551; 71045; 80048; 80061; 81001; 82550; 82553; 83036; 84443; 84484; 85025; 85049; 85055; 85610; 85730; 86850; 86900; 86901; 90732; 93005; 93041; 93306; 94760; 97161; 97165; 99285; G0009; G0378; Q9967; U0002

== ENCOUNTER → 2020-03-06 | Outpatient (CLI) | payer MEDICARE ==
[~2020-03-06] MED LIST changes: +ASPI1CHW3 PO; +ASPI325T57 PO; +DIPH25CA32 PO; +MAGN400T3 PO
--- NOTE | 2020-03-06 10:06 | RADONC ---
Radiation Oncology Hx/FUP Radiation Oncology Hx/FUP Date of Service: Mar 06, 2020 Pt Identifier Gricelda Kiser is a 64 year old female seen for a followup visit today at the department of radiation oncology for a history of DCIS of the right breast [id number] ER/ID+ HER2- Grade 2. She underwent lumpectomy on 02/04/18. She completed adjuvant whole breast RT 40 Gy in 15 fractions followed by 9 Gy in 5 fraction tumor bed boost on 05/02/18. She was recently hospitalized with a stroke and has temporarily stopped her anastrozole. Diagnosis/Treatment History Oncologic History above Interval History Feels well today. Weakness in the lower extremities is improving. Appetite good weight stable. No pain today. Has no skin concerns on the treated side. She had a mammogram in January which was negative. She sees Dr. Montes next month. Current Therapy Anastrozole on hold d/t recent CVA Stage Stage 0 [id number] right breast Social History: Former 40+ pack year smoker Does not drink Allergies / Meds Allergies: Coded Allergies: lisinopril (Verified Adverse Reaction, Mild, dry cough vomiting, 02/20/20) Home Meds Active Scripts Aspirin (Aspirin) 325 Mg Tablet, 1 TAB PO DAILY for fever for 30 Days, #30 TAB Prov:ABHIJEET MORALES MD 02/22/20 Atorvastatin Calcium (Atorvastatin Calcium) 20 Mg Tablet, 40 MG PO DAILY, #60 TAB Prov:ABHIJEET MORALES MD 02/22/20 Anastrozole (Anastrozole) 1 Mg Tablet, 1 TAB PO DAILY for 30 Days, #30 TAB 2 Refills Prov:DANIEL MONTES MD 02/01/20 Reported Medications Diphenhydramine HCl (Diphenhydramine HCl) 25 Mg Capsule, 25 MG PO Q6H PRN for ALLERGY SYMPTOMS, CAP 02/21/20 Magnesium Oxide (Magnesium Oxide) 400 Mg Tablet, 400 MG PO BID, TAB 02/21/20 Vitamin E (Vitamin E) 400 Unit Capsule, 400 UNIT PO DAILY, CAP 02/21/20 Docusate Sodium (Colace) 100 Mg Capsule, 1 CAP PO DAILY for 30 Days, #30 CAP 02/01/20 Cyanocobalamin (Vitamin B-12) (B-12) 1,000 Mcg Tablet, 1000 MCG PO DAILY, TAB 10/11/19 Citalopram Hydrobromide (Citalopram HBr) 20 Mg Tablet, 20 MG PO DAILY 10/11/19 Losartan Potassium (Losartan Potassium) 25 Mg Tablet, 25 MG PO DAILY 10/11/19 Amiloride HCl (Amiloride HCl) 5 Mg Tablet, 5 MG PO DAILY 07/21/19 Pantoprazole Sodium (Pantoprazole Sodium) 40 Mg Tab, 40 MG PO DAILY 01/31/18 Potassium Chloride (Potassium Chloride) 10 Meq Tab, 10 MEQ PO BID, TAB 01/31/18 Metformin HCl (Metformin HCl) 500 Mg Tab, 500 MG PO QHS 01/31/18 Trazodone HCl (Trazodone HCl) 150 Mg Tab, 150 MG PO QHS 01/31/18 Carvedilol (Carvedilol) 3.125 Mg Tab, 3.125 MG PO DAILY, TAB PRESCRIPTION IS FOR BID, PATIENT STATES ONLY TAKING DAILY 04/15/15 Review of Systems Review of Systems Constitutional: Reports: Weakness; Denies: Chills, Fever, Night Sweats, Fatigue, Weight Loss Eyes: Denies: Pain, Vision change HEENT: Denies: Head Aches Skin: Denies: Rash, Lesions Breast: Reports: Breast Pain or Tenderness (Occasional fleeting right breast p ains); Denies: New Breast Lumps / Masses, Breast Skin Changes Pulmonary: Denies: Dyspnea, Cough Cardiovascular: Denies: Chest Pain, Palpitations Gastrointestinal: Denies: Nausea, Vomiting Genitourinary: Denies: Dysuria Hematologic: Denies: Bruising Endocrine: Denies: Polydipsia Musculoskeletal: Denies: Neck pain, Back pain Neurological: Reports: Weakness, Incoordination; Denies: Numbness, Change in Speech Psych: Reports: Mood Normal; Denies: Anxiety, Depression, Memory Issues Physical Examination Vital Signs Ht 62" Wt 178 lb BMI 32 T 97.8 P 82 RR 18 BP 120/78 O2 100% General Exam: Positive: Alert, Cooperative; Negative: No Acute Distress Eye Exam: Positive: PERRLA, EOMI ENT EXAM: Positive: Atraumatic, Pharynx Normal Neck Exam: Positive: Supple; Negative: Thyromegaly, Lymphadenopathy Chest Exam: Positive: Normal air movement Heart Exam: Positive: Rate Normal, Regular Rhythm Breast Exam: Positive: Symmetric Bilaterally (Ptotic), Skin Changes (Telangiectasias over surgical scar upper outer quadrant right breast. No pigmentation changes); Negative: Lumps or Masses (Palpable fibrosis in the surgical bed on right), Nipple Retraction, Nipple Discharge Abdomen Exam: Positive: Soft, Other (10 cm RUQ scar from gallbladder surgery in 1970s); Negative: Tenderness Extremity Exam: Negative: Edema Skin Exam: Positive: Nl turgor and temperature Neuro Exam: Positive: Normal Gait, Normal Speech, Cranial Nerves 3-12 NL Psych Exam: Positive: Mental status NL, Mood NL Diagnostic and Laboratory Diagnostic Review Radiologic images, relevant labs and pathology reports were personally reviewed and discussed with Ms. Kiser. Assessment and Plan Impression Assessment Ms. Kiser is a 64 year old female with a history of DCIS of the right breast [id number] ER/ID+ HER2- Grade 2. She underwent lumpectomy on 02/04/18. She completed adjuvant whole breast RT 40 Gy in 15 fractions followed by 9 Gy in 5 fraction tumor bed boost on 05/02/18. She was recently hospitalized with a stroke and has temporarily stopped her anastrozole. She is recovering fro her stroke. Mild residual LE weakness. She is up to date on her mammograms, and has no evidence of recurrence or de anastacia lesions on breast exam today. Her only post-RT sequela is a small focus of telangiectasias on the skin over the site of tumor bed boost which is common and not bothersome. As she is approaching 2 years from RT, I offered her another appointment in 1 year, if all is well at that time, then she could follow up with medical oncology only if she wishes. She agreed to see me in a year. Performance Status ECOG 1 Plan Follow up in 1 year Will see PRN after that if all is well Ms. Kiser was encouraged to call with questions or concerns in the interim period. AYE GRIMES MD Mar 06, 2020 10:06
== END ==
LOC: M ONCR 09:21
PROVIDERS: ATTEND General Practice
DX: D05.11 Intraductal carcinoma in situ of right breast (principal)

== ENCOUNTER → 2020-05-05 | Outpatient (CLI) | payer MEDICARE ==
[~2020-05-05] MED LIST changes: +ASPI81CH17 PO; +QC A650T3 PO
== END ==
LOC: M LABSMTC 10:38
PROVIDERS: ATTEND Anesthesiology
DX: Z01.812 Encounter for preprocedural laboratory examination (principal); Z20.822 Contact with and (suspected) exposure to COVID-19

== ENCOUNTER 2020-05-10 06:50 | Day surgery (SDC) | payer MEDICARE ==
[~2020-05-10] VITALS: Ht 162.6 cm; Wt 82.3 kg
[~2020-05-10 06:50] MED LIST changes: +ASPI-281 PO; -ASPI81CH17 PO
[2020-05-10] MEDS ORDERED: NS 1,000 ML IV ONE (07:00)
[2020-05-10] MEDS ORDERED: LIDOCAINE 2% 100MG/5ML SDV (FOR ANES.) As Ordered ONE (07:43)
[2020-05-10] MEDS ORDERED: fentaNYL 100 MCG/2 ML INJECTION (J3010) As Ordered ONE (07:43)
[2020-05-10] MEDS ORDERED: propofoL 200 MG/20 ML VIAL As Ordered ONE (07:43)
--- NOTE | 2020-05-10 08:05 | ROOR ---
Patient Name: Gricelda Kiser Procedure Date: 05/10/2020 7:51 AM Date of : 1955 Age: 64 Room: [facility] Gender: Female Note Status: Finalized Procedure: Upper GI endoscopy Indications: Iron deficiency anemia Providers: Elias TSE MD Referring MD: Ehsan Mays DO Requesting Provider: Medicines: Monitored Anesthesia Care Complications: No immediate complications. Procedure: Pre-Anesthesia Assessment: - The anesthesia plan was to use moderate sedation/analgesia (conscious sedation). The Endoscope was introduced through the mouth, and advanced to the second part of duodenum. The upper GI endoscopy was accomplished without difficulty. The patient tolerated the procedure well. Findings: Grade I varices were found in the lower third of the esophagus. (Varices are small today, primary prevention/eradication not indicated today) The exam of the esophagus was otherwise normal. The entire examined stomach was normal. The examined duodenum was normal. Biopsies for histology were taken with a cold forceps for evaluation of celiac disease. Impression: - Grade I esophageal varices. (Varices are small today, primary prevention/eradication not indicated today) - Normal stomach. - Normal examined duodenum. Biopsied. Recommendation: - I suspect you may have cirrhosis portal hypertension. I will send you lab studies to complete. Procedure Code(s): --- Professional --- 40610, Esophagogastroduodenoscopy, flexible, transoral; with biopsy, single or multiple Diagnosis Code(s): --- Professional --- D50.9, Iron deficiency anemia, unspecified I85.00, Esophageal varices without bleeding CPT copyright 2019 [employer]. All rights reserved. The codes documented in this report are preliminary and upon coder operator review may be revised to meet current compliance requirements. Elias Tse MD Elias TSE MD 05/10/2020 8:05:28 AM Electronically signed by Elias TSE MD Number of Addenda: 0 Note Initiated On: 05/10/2020 7:51 AM Estimated Blood Loss: Estimated blood loss: none.
--- NOTE | 2020-05-10 08:42 | ROOR ---
Patient Name: Gricelda Kiser Procedure Date: 05/10/2020 7:52 AM Date of : 1955 Age: 64 Room: [id number] Gender: Female Note Status: Finalized Procedure: Colonoscopy Indications: Iron deficiency anemia Providers: Elias TSE MD Referring MD: Ehsan Mays DO Requesting Provider: Medicines: Monitored Anesthesia Care Complications: No immediate complications. Procedure: Pre-Anesthesia Assessment: - The heart rate, respiratory rate, oxygen saturations, blood pressure, adequacy of pulmonary ventilation, and response to care were monitored throughout the procedure. The Colonoscope was introduced through the anus and advanced to 10 cm into the ileum. The colonoscopy was performed without difficulty. The patient tolerated the procedure well. The quality of the bowel preparation was fair. Findings: The perianal and digital rectal examinations were normal. Two flat and erythematous polyps were found in the cecum. The polyps were small in size. These polyps were removed with a cold snare. Resection and retrieval were complete. Polypectomy site bleeding required hemostasis.Three hemostatic clips were successfully placed. There was no bleeding at the end of the procedure. (r/o vascular ectasia/dilated capillaries vs adenoma) Multiple medium-mouthed diverticula were found in the sigmoid colon. Internal hemorrhoids were found during retroflexion. The hemorrhoids were medium-sized. Impression: - Preparation of the colon was fair. - Two small flat erythematous spots/polyps (r/o vascular ectasia) in the cecum, removed with a cold snare. Resected and retrieved. Clips were placed. - Moderate diverticulosis in the sigmoid colon. - Internal hemorrhoids. - The colon is otherwise normal. Recommendation: - No ibuprofen, naproxen, or other non-steroidal anti-inflammatory drugs. Procedure Code(s): --- Professional --- 39604, Colonoscopy, flexible; with removal of tumor(s), polyp(s), or other lesion(s) by snare technique Diagnosis Code(s): --- Professional --- K64.8, Other hemorrhoids K63.5, Polyp of colon D50.9, Iron deficiency anemia, unspecified K57.30, Diverticulosis of large intestine without perforation or abscess without bleeding CPT copyright 2019 [employer]. All rights reserved. The codes documented in this report are preliminary and upon asphalt smoother review may be revised to meet current compliance requirements. Elias Tse MD Elias TSE MD 05/10/2020 8:42:32 AM Electronically signed by Elias TSE MD Number of Addenda: 0 Note Initiated On: 05/10/2020 7:52 AM Estimated Blood Loss: Estimated blood loss: none.
[2020-05-10 09:00] VITALS: BP 142/88
== END 2020-05-10 09:40 | disposition home or self-care (01) ==
LOC: M OPP 06:50
PROVIDERS: ATTEND Internal Medicine Gastroenterology
DX: D50.9 Iron deficiency anemia, unspecified (principal); K63.5 Polyp of colon; K57.30 Diverticulosis of large intestine without perforation or abscess without bleeding; K64.8 Other hemorrhoids; D13.2 Benign neoplasm of duodenum; I85.00 Esophageal varices without bleeding; I10 Essential (primary) hypertension; E78.5 Hyperlipidemia, unspecified; E11.9 Type 2 diabetes mellitus without complications; R12 Heartburn; K21.9 Gastro-esophageal reflux disease without esophagitis; F41.9 Anxiety disorder, unspecified; J44.9 Chronic obstructive pulmonary disease, unspecified; G47.00 Insomnia, unspecified; Z86.73 Personal history of transient ischemic attack (TIA), and cerebral infarction without residual deficits; Z85.3 Personal history of malignant neoplasm of breast; Z92.3 Personal history of irradiation; Z87.891 Personal history of nicotine dependence; Z88.8 Allergy status to other drugs, medicaments and biological substances; Z79.82 Long term (current) use of aspirin; Z79.84 Long term (current) use of oral hypoglycemic drugs; Z79.899 Other long term (current) drug therapy; Z85.828 Personal history of other malignant neoplasm of skin
CPT/HCPCS: 43239; 45385; 88305; J3010

== ENCOUNTER → 2020-07-05 | Outpatient (CLI) | payer MEDICARE ==
[2020-07-05 17:14] LABS: ALBUMIN 3.3 GM/DL (3.2-5.2); ALT/SGPT 58 U/L (12-78); BILIRUBIN,DIRECT 0.5 MG/DL (0.0-0.2); BILIRUBIN,TOTAL 1.2 MG/DL (0.2-1.0); IRON (FE) 114 UG/DL (50-170); PERCENT SATURATION 50.2 % (13.2-45.0); TOTAL IRON BINDING CAPACITY 227 UG/DL (250-450); TOTAL PROTEIN 6.6 GM/DL (6.4-8.2)
[2020-07-05 17:35] LABS: HEPATITIS B SURFACE ANTIGEN NEGATIVE (NEGATIVE)
[2020-07-05 18:02] LABS: HEPATITIS B CORE ANTIBODY IGM NEGATIVE (NEGATIVE); HEPATITIS C VIRUS ABY INDEX 0.1 INDEX (<0.8)
[2020-07-05 18:05] LABS: HEPATITIS A ANTIBODY IGM NEGATIVE (NEGATIVE)
[2020-07-08 19:06] LABS: ANCA-ATYPICAL <1:20 titer (Neg:<1:20); ANTI-MITOCHONDRIAL ANTIBODY <20.0 Units (0.0-20.0); ANTINUCLEAR ANTIBODIES DIRECT Negative (Negative); CYTOPLASMIC NEUTROP AB ANCA-C <1:20 titer (Neg:<1:20); LIVER-KIDNEY MICROSOMAL ABY <20.1 Units (0.0-20.0); PERINUCLEAR AB ANCA-P <1:20 titer (Neg:<1:20); TISSUE TRANSGLUTAMINASE IgA <2 U/mL (0-3)
== END ==
LOC: M LAB 15:08
PROVIDERS: ATTEND Internal Medicine Gastroenterology
DX: K74.69 Other cirrhosis of liver (principal); K76.6 Portal hypertension

== ENCOUNTER → 2020-07-05 | Outpatient (CLI) | payer MEDICARE ==
[2020-07-05 17:09] LABS: BLOOD UREA NITROGEN 16 MG/DL (7-18); CALCIUM LEVEL 8.7 MG/DL (8.8-10.2); CARBON DIOXIDE LEVEL 30 MEQ/L (21-32); CHLORIDE LEVEL 111 MEQ/L (98-107); CREATININE FOR GFR 0.58 MG/DL (0.55-1.30); GLOMERULAR FILTRATION RATE > 60.0 (>45); GLUCOSE, FASTING 115 MG/DL (70-100); SODIUM LEVEL 144 MEQ/L (136-145)
[2020-07-05 17:25] LABS: HEMOGLOBIN A1c 5.5 %
== END ==
LOC: M LAB 15:04
PROVIDERS: ATTEND Family Medicine
DX: E11.65 Type 2 diabetes mellitus with hyperglycemia (principal)

== ENCOUNTER → 2020-07-25 | Outpatient (CLI) | payer MEDICARE ==
--- NOTE | 2020-07-25 09:55 | REP ---
INDICATION: CIRRHOSIS. COMPARISON: 05/05/2019 FINDINGS: Multiple ultrasonographic images of the liver show the hepatic parenchymal echo texture to have diffuse increased echoes throughout status quo. The estimated maximal hepatic dimension at the midclavicular line is 17 cm. This is essentially unchanged.. There are no focal masses. There is no intrahepatic ductal dilatation. The common bile duct measures approximately 6.1 mm in its greatest transverse dimension. Images of the pancreatic region show no gross abnormality but is seen in a markedly limited fashion. The imaged portion of the right kidney is unremarkable. IMPRESSION: Essentially unchanged from the prior exam. Findings as described above. Accredited by the [employer] in General Ultrasound. <Electronically signed by Jr Marrufo > 07/25/20 [id number]
== END ==
LOC: M RAD 08:55
PROVIDERS: ATTEND Internal Medicine Gastroenterology
DX: K74.69 Other cirrhosis of liver (principal)

== ENCOUNTER → 2020-11-25 | Outpatient (CLI) | payer MEDICARE ==
[~2020-11-25] MED LIST changes: +COVI30VI IM
[2020-11-25 13:36] LABS: BASO % 0.8 % (0.0-1.0); EOS # 0.2 10^3/uL (0.0-0.5); EOS % 4.9 % (0.0-3.0); HEMATOCRIT 39.2 % (36.0-47.0); HEMOGLOBIN 12.9 g/dl (12.0-15.5); LYMPH # 1.5 10^3/uL (1.5-5.0); LYMPH % 40.5 % (24.0-44.0); MEAN CORPUSCULAR HEMOGLOBIN 30.8 pg (27.0-33.0); MEAN CORPUSCULAR HGB CONC 32.9 g/dl (32.0-36.5); MEAN CORPUSCULAR VOLUME 93.6 fl (80.0-96.0); MONO # 0.4 10^3/uL (0.0-0.8); NEUTROPHILS # 1.5 10^3/uL (1.5-8.5); NEUTROPHILS % 41.5 % (36.0-66.0); RED BLOOD COUNT 4.19 10^6/uL (4.00-5.40); WHITE BLOOD COUNT 3.7 10^3/uL (4.0-10.0)
[2020-11-25 13:38] LABS: PLATELET COUNT, AUTOMATED 72 10^3/uL (150-450)
[2020-11-25 14:04] LABS: ALBUMIN 2.8 GM/DL (3.2-5.2); ALT/SGPT 39 U/L (12-78); BILIRUBIN,TOTAL 1.2 MG/DL (0.2-1.0); BLOOD UREA NITROGEN 18 MG/DL (7-18); CALCIUM LEVEL 7.9 MG/DL (8.8-10.2); CARBON DIOXIDE LEVEL 28 MEQ/L (21-32); CHLORIDE LEVEL 112 MEQ/L (98-107); CREATININE FOR GFR 0.61 MG/DL (0.55-1.30); FERRITIN 64 NG/ML (8-252); GLOMERULAR FILTRATION RATE > 60.0 (>45); GLUCOSE, FASTING 195 MG/DL (70-100); IRON (FE) 99 UG/DL (50-170); PERCENT SATURATION 37.8 % (13.2-45.0); POTASSIUM SERUM 3.9 MEQ/L (3.5-5.1); SODIUM LEVEL 143 MEQ/L (136-145); TOTAL IRON BINDING CAPACITY 262 UG/DL (250-450); TOTAL PROTEIN 6.2 GM/DL (6.4-8.2)
== END ==
LOC: M LAB 12:27
PROVIDERS: ATTEND Internal Medicine Medical Oncology
DX: C50.911 Malignant neoplasm of unspecified site of right female breast (principal)

== ENCOUNTER → 2021-01-28 | Outpatient (CLI) | payer MEDICARE ==
[~2021-01-28] MED LIST changes: -ASPI-281 PO; +ASPI-310 PO; -MAGN400T3 PO; +MAGN400T33 PO
--- NOTE | 2021-01-28 16:19 | REPMRS ---
Patient History The patient states she had a clinical breast exam in Nov 2020. Patient is postmenopausal, has history of cancer in the right breast at age 62, and has history of high-risk lesion on a previous biopsy at age 62. Family history of pancreatic cancer at age 50 or over in maternal aunt, unknown cancer at age 90 in father, ovarian cancer at age 60 in maternal aunt, unknown cancer at age 60 in maternal aunt. Radiation therapy of the right breast, 2019. Malignant radio exam breast specimen of the right breast, February 04, 2018. Malignant localization of breast nodule of the right breast, February 04, 2018. High risk radio exam breast specimen of the right breast, January 19, 2018. High risk stereotatic loc for ea lesion of the right breast, January 19, 2018. Took tamoxifen for 3 years beginning at age 62. Patient states no breast complaints today. Patient has signed MRS History Sheet. Digital Woman Screen Mammo: January 28, 2021 - Exam #: [id number] Bilateral CC and MLO view(s) were taken. Technologist: Camilla Rothman [employer] Prior study comparison: January 18, 2020, bilateral digital woman screen mammo performed at [facility]. January 16, 2019, bilateral digital mammo screening bilat, performed at [facility]. FINDINGS: There are scattered fibroglandular densities. Screening. This patient?s lifetime risk for the development of invasive breast cancer can?t be calculated due to her history of breast cancer. Digital screening (2D) mammography was performed bilaterally. Additionally, breast tomosynthesis (3D mammography) was performed bilaterally in the CC and MLO projections. Today's exam was compared to the prior exam/exams. By history, the patient has no complaints of a palpable breast abnormality or other significant breast complaints. The Volpara volumetric breast density category is B, there are scattered areas of fibroglandular densities. The patient is status post right lumpectomy/chemo radiation therapy due to breast carcinoma. The breasts are unchanged in size and shape. There are no arpan-areas of internal architectural distortion. There are no arpan-soft tissue densities or areas of spiculation. There is unchanged post radiation skin thickening. There are again noted Surgical clips at the lumpectomy site. IMPRESSION: BI-RADS Category 2- Benign Findings. There is no evidence of malignant alteration of the breasts. Routine bilateral screening mammogram recommended at its regularly scheduled annual interval. This mammogram was read with the assistance of [employer],an FDA approved computer aided detection system for mammography. Negative x-ray reports should not delay surgical consultation if a dominant or clinically suspicious mass is present. Not all breast cancers can be identified by mammography. Therefore, we recommend that you continue to perform regular breast self-examination and physical examination and then promptly contact your physician of any concerns or changes. Adenosis and dense breasts may obscure an underlying neoplasm. No significant changes when compared with prior studies. Assessment: BI-RADS/ACR category 2 mammogram. Benign Findings. Recommendation Routine screening mammogram of both breasts in 1 year. Electronically Signed By: Shai Chino MD 01/28/21 1719
== END ==
LOC: M WHC 13:21
PROVIDERS: ATTEND Family Medicine
DX: Z12.31 Encounter for screening mammogram for malignant neoplasm of breast (principal); Z85.3 Personal history of malignant neoplasm of breast; Z80.0 Family history of malignant neoplasm of digestive organs; Z80.41 Family history of malignant neoplasm of ovary; Z92.3 Personal history of irradiation

== ENCOUNTER 2021-01-30 12:30 | Outpatient (RCR) | payer MEDICARE | END 2021-02-02 | LOC: M PT 12:30 | PROVIDERS: ATTEND Family Medicine | DX: M25.511 Pain in right shoulder (principal) ==

== ENCOUNTER → 2021-02-10 | Outpatient (CLI) | payer MEDICARE ==
--- NOTE | 2021-02-10 13:25 | REP ---
INDICATION: CIRRHOSIS, PAT. COMPARISON: 07/25/2020 TECHNIQUE: Real-time sonographic evaluation of the right upper quadrant with Doppler FINDINGS: Multiple ultrasonographic images of the liver shows diffuse increased echos throughout the hepatic parenchyma without evidence of a mass or ductal dilatation. The common bile duct measures approximately 7 mm in its greatest transverse dimension. Images of the pancreatic region show no gross abnormality. The imaged portion of the right kidney is unchanged. IMPRESSION: Status post cholecystectomy. Fatty infiltration of the liver. No significant change Accredited by the [employer] in General Ultrasound. <Electronically signed by Jr Marrufo > 02/10/21 [id number]
== END ==
LOC: M RAD 09:39
PROVIDERS: ATTEND Internal Medicine Gastroenterology
DX: K74.69 Other cirrhosis of liver (principal); K75.81 Nonalcoholic steatohepatitis (NASH); Z90.49 Acquired absence of other specified parts of digestive tract

== ENCOUNTER → 2021-03-10 | Outpatient (CLI) | payer MEDICARE ==
[2021-03-10 14:18] LABS: BILIRUBIN,DIRECT 0.4 MG/DL (0.0-0.2); TOTAL PROTEIN 6.4 GM/DL (6.4-8.2)
== END ==
LOC: M LAB 12:13
PROVIDERS: ATTEND Internal Medicine Gastroenterology
DX: K74.69 Other cirrhosis of liver (principal)

== ENCOUNTER → 2021-03-12 | Outpatient (CLI) | payer MEDICARE ==
[~2021-03-12] MED LIST changes: +LOSA25TA13 PO; -LOSA25TA14 PO; +LOSA50TA28 PO; -LOSA50TA88 PO; +MELO15TA28 PO; -POTA10TA14 PO; +POTA1TAB24 PO
== END ==
LOC: M ONCR 14:43
PROVIDERS: ATTEND General Practice
DX: D05.11 Intraductal carcinoma in situ of right breast (principal); C44.41 Basal cell carcinoma of skin of scalp and neck
CPT/HCPCS: G0463 ×2

== ENCOUNTER → 2021-03-25 | Outpatient (REF) | payer MEDICARE ==
[~2021-03-25] MED LIST changes: -LOSA25TA13 PO; +LOSA25TA14 PO; -LOSA50TA28 PO; +LOSA50TA88 PO; -MELO15TA28 PO; +POTA10TA14 PO; -POTA1TAB24 PO
== END ==
LOC: M SFHCPLAZ 12:37
PROVIDERS: ATTEND Physician Assistant
DX: R09.89 Other specified symptoms and signs involving the circulatory and respiratory systems (principal)

== ENCOUNTER 2021-03-31 09:46 | Outpatient (RCR) | payer MEDICARE ==
[~2021-03-31 09:46] MED LIST changes: -LOSA25TA13 PO; +LOSA25TA14 PO; -LOSA50TA28 PO; +LOSA50TA88 PO; -MELO15TA28 PO; +POTA10TA14 PO; -POTA1TAB24 PO
[2021-04-02] MEDS ORDERED: MELO15TA28 PO (15:00)
== END 2021-04-04 ==
LOC: M ONCR 09:46
PROVIDERS: ATTEND General Practice
DX: Z51.0 Encounter for antineoplastic radiation therapy (principal); C44.41 Basal cell carcinoma of skin of scalp and neck

== ENCOUNTER → 2021-03-31 | Outpatient (CLI) | payer MEDICARE ==
[~2021-03-31] MED LIST changes: +LOSA25TA13 PO; -LOSA25TA14 PO; +LOSA50TA28 PO; -LOSA50TA88 PO; +MELO15TA28 PO; -POTA10TA14 PO; +POTA1TAB24 PO
== END ==
LOC: M PLAIMG 12:54
PROVIDERS: ATTEND Family Medicine
DX: M81.0 Age-related osteoporosis without current pathological fracture (principal); M19.011 Primary osteoarthritis, right shoulder

== ENCOUNTER → 2021-05-05 | Outpatient (RCR) | payer MEDICARE ==
[~2021-05-05] MED LIST changes: +LOSA25TA13 PO; -LOSA25TA14 PO; +LOSA50TA28 PO; -LOSA50TA88 PO; +MELO15TA28 PO; -POTA10TA14 PO; +POTA1TAB24 PO
== END ==
LOC: M ONCR 04-08 15:02
PROVIDERS: ATTEND General Practice
DX: C44.41 Basal cell carcinoma of skin of scalp and neck (principal)

== ENCOUNTER 2021-05-14 14:55 | Outpatient (RCR) | payer MEDICARE | END 2021-06-02 | LOC: M ONCR 14:55 | PROVIDERS: ATTEND General Practice | DX: C44.41 Basal cell carcinoma of skin of scalp and neck (principal) ==

== ENCOUNTER → 2021-05-30 | Outpatient (REF) | payer MEDICARE | LOC: M LAB REF 12:54 | PROVIDERS: ATTEND Nurse Practitioner Family | DX: E83.42 Hypomagnesemia (principal) ==

== ENCOUNTER → 2021-06-11 | Outpatient (CLI) | payer MEDICARE | LOC: M ONCR 11:21 | PROVIDERS: ATTEND General Practice | DX: C44.41 Basal cell carcinoma of skin of scalp and neck (principal); Z92.3 Personal history of irradiation ==

== ENCOUNTER → 2021-08-06 | Outpatient (CLI) | payer MEDICARE | LOC: M WUC 11:11 | PROVIDERS: ATTEND Family Medicine | DX: M25.562 Pain in left knee (principal); M25.762 Osteophyte, left knee ==

== ENCOUNTER → 2021-09-04 | Outpatient (CLI) | payer MEDICARE ==
[2021-09-04 12:45] LABS: HEMATOCRIT 31.2 % (36.0-47.0); HEMOGLOBIN 9.4 g/dl (12.0-15.5); MEAN CORPUSCULAR HEMOGLOBIN 23.9 pg (27.0-33.0); MEAN CORPUSCULAR HGB CONC 30.1 g/dl (32.0-36.5); MEAN CORPUSCULAR VOLUME 79.4 fl (80.0-96.0); RED BLOOD COUNT 3.93 10^6/uL (4.00-5.40); WHITE BLOOD COUNT 3.1 10^3/uL (4.0-10.0)
[2021-09-04 12:51] LABS: PLATELET COUNT, AUTOMATED 75 10^3/uL (150-450)
[2021-09-04 13:15] LABS: ALBUMIN 2.9 GM/DL (3.2-5.2); BILIRUBIN,DIRECT 0.5 MG/DL (0.0-0.2); BILIRUBIN,TOTAL 1.1 MG/DL (0.2-1.0); TOTAL PROTEIN 6.1 GM/DL (6.4-8.2)
== END ==
LOC: M WUC 10:35
PROVIDERS: ATTEND Physician Assistant Medical
DX: K74.60 Unspecified cirrhosis of liver (principal); D69.6 Thrombocytopenia, unspecified

== ENCOUNTER → 2021-09-12 | Outpatient (CLI) | payer MEDICARE | LOC: M WHC 09:03 | PROVIDERS: ATTEND Physician Assistant Medical | DX: K74.60 Unspecified cirrhosis of liver (principal); K75.81 Nonalcoholic steatohepatitis (NASH); K76.6 Portal hypertension; Z90.49 Acquired absence of other specified parts of digestive tract; N28.1 Cyst of kidney, acquired; R16.1 Splenomegaly, not elsewhere classified; K76.0 Fatty (change of) liver, not elsewhere classified ==

== ENCOUNTER → 2021-09-21 | Outpatient (CLI) | payer MEDICARE | LOC: M LABSMTC 12:06 | PROVIDERS: ATTEND Anesthesiology | DX: Z01.812 Encounter for preprocedural laboratory examination (principal); Z20.822 Contact with and (suspected) exposure to COVID-19 ==

== ENCOUNTER 2021-09-25 07:21 | Day surgery (SDC) | payer MEDICARE ==
[~2021-09-25] VITALS: Ht 162.6 cm; Wt 94.3 kg
[2021-09-25] MEDS ORDERED: NS 1,000 ML IV ONE (08:25)
[2021-09-25] MEDS ORDERED: fentaNYL 100 MCG/2 ML INJECTION As Ordered ONE (08:38)
[2021-09-25] MEDS ORDERED: LIDOCAINE 2% 100MG/5ML SDV (FOR ANES.) As Ordered ONE (09:11)
[2021-09-25] MEDS ORDERED: propofoL 500 MG/50 ML VIAL As Ordered ONE (09:11)
[2021-09-25 09:50] VITALS: BP 172/81
== END 2021-09-25 09:59 | disposition home or self-care (01) ==
LOC: M OPP 07:21
PROVIDERS: ATTEND Internal Medicine Gastroenterology
DX: K63.5 Polyp of colon (principal); K55.20 Angiodysplasia of colon without hemorrhage; K57.30 Diverticulosis of large intestine without perforation or abscess without bleeding; K64.8 Other hemorrhoids; D61.818 Other pancytopenia; K71.6 Toxic liver disease with hepatitis, not elsewhere classified; K31.89 Other diseases of stomach and duodenum; D50.9 Iron deficiency anemia, unspecified; I85.00 Esophageal varices without bleeding; K76.0 Fatty (change of) liver, not elsewhere classified; Z79.02 Long term (current) use of antithrombotics/antiplatelets; Z79.1 Long term (current) use of non-steroidal anti-inflammatories (NSAID); Z79.84 Long term (current) use of oral hypoglycemic drugs; Z79.899 Other long term (current) drug therapy; Z88.8 Allergy status to other drugs, medicaments and biological substances; Z86.73 Personal history of transient ischemic attack (TIA), and cerebral infarction without residual deficits; Z87.891 Personal history of nicotine dependence; Z92.21 Personal history of antineoplastic chemotherapy
CPT/HCPCS: 43238; 45382; 45385; 88305; J3010

== ENCOUNTER → 2021-11-10 | Outpatient (CLI) | payer MEDICARE ==
[2021-11-10 16:43] LABS: HEMATOCRIT 42.5 % (36.0-47.0); HEMOGLOBIN 13.1 g/dl (12.0-15.5); MEAN CORPUSCULAR HEMOGLOBIN 26.7 pg (27.0-33.0); MEAN CORPUSCULAR HGB CONC 30.8 g/dl (32.0-36.5); MEAN CORPUSCULAR VOLUME 86.7 fl (80.0-96.0); WHITE BLOOD COUNT 3.5 10^3/uL (4.0-10.0)
[2021-11-10 16:56] LABS: PLATELET COUNT, AUTOMATED 65 10^3/uL (150-450)
[2021-11-10 22:36] LABS: PERCENT SATURATION 63.3 % (13.2-45.0)
== END ==
LOC: M WUC 13:11
PROVIDERS: ATTEND Physician Assistant Medical
DX: D50.9 Iron deficiency anemia, unspecified (principal)

== ENCOUNTER → 2021-11-12 | Outpatient (CLI) | payer MEDICARE | LOC: M ONCR 11:20 | PROVIDERS: ATTEND General Practice | DX: C44.41 Basal cell carcinoma of skin of scalp and neck (principal); Z92.3 Personal history of irradiation; Z87.891 Personal history of nicotine dependence; Z79.899 Other long term (current) drug therapy ==

== ENCOUNTER → 2022-02-02 | Outpatient (CLI) | payer MEDICARE ==
[~2022-02-02] MED LIST changes: +AMIT10TA7; -TAMO10TA PO; +TAMO10TA8 PO; +VITMTA PO
== END ==
LOC: M WHC 13:12
PROVIDERS: ATTEND Family Medicine
DX: Z12.31 Encounter for screening mammogram for malignant neoplasm of breast (principal); Z85.3 Personal history of malignant neoplasm of breast

== ENCOUNTER → 2022-02-25 | Outpatient (REF) | payer MEDICARE ==
[2022-02-25 14:22] LABS: BLOOD UREA NITROGEN 18 MG/DL (9-23); CALCIUM LEVEL 8.1 MG/DL (8.3-10.6); CARBON DIOXIDE LEVEL 26 MMOL/L (20-31); CHLORIDE LEVEL 110 MMOL/L (98-107); CHOLESTEROL LEVEL 66 MG/DL (<200); CHOLESTEROL RISK RATIO 2.36 (<5); CREATININE FOR GFR 0.52 MG/DL (0.55-1.30); GLOMERULAR FILTRATION RATE > 60.0 (>45); GLUCOSE, FASTING 118 MG/DL (74-106); HDL CHOLESTEROL 27.9 MG/DL (>40); LDL CHOLESTEROL 22.3 MG/DL (<100); NON-HDL-C 38 MG/DL; POTASSIUM SERUM 3.6 MMOL/L (3.5-5.1); SODIUM LEVEL 145 MMOL/L (136-145); TRIGLYCERIDES LEVEL 79 MG/DL (<150)
[2022-02-25 15:13] LABS: HEMOGLOBIN A1c 5.8 % (4.0-6.0)
== END ==
LOC: M WUC 10:05
PROVIDERS: ATTEND Family Medicine
DX: E11.9 Type 2 diabetes mellitus without complications (principal)

== ENCOUNTER → 2022-04-23 | Outpatient (CLI) | payer MEDICARE ==
[~2022-04-23] MED LIST changes: +DIPH-435 PO; -DIPH25CA32 PO
== END ==
LOC: M CARPUL 08:32
PROVIDERS: ATTEND Family Medicine
DX: K74.60 Unspecified cirrhosis of liver (principal); R06.02 Shortness of breath; I08.0 Rheumatic disorders of both mitral and aortic valves; I31.39 Other pericardial effusion (noninflammatory)

== ENCOUNTER → 2022-04-29 | Outpatient (CLI) | payer MEDICARE | LOC: M RAD 08:32 | PROVIDERS: ATTEND Physician Assistant Medical | DX: K74.60 Unspecified cirrhosis of liver (principal); K76.0 Fatty (change of) liver, not elsewhere classified; R16.1 Splenomegaly, not elsewhere classified ==

== ENCOUNTER → 2022-07-03 | Outpatient (REF) | payer MEDICARE | LOC: M LABWUC 17:26 | PROVIDERS: ATTEND Physician Assistant Medical | DX: K74.60 Unspecified cirrhosis of liver (principal) ==

== ENCOUNTER → 2022-10-07 | Outpatient (CLI) | payer MEDICARE ==
[~2022-10-07] MED LIST changes: +ALLE24TA7 PO; +ASPI-655 PO; -ASPI1CHW3 PO; +METF500T13 PO
[2022-10-07 15:01] LABS: HEMATOCRIT 44.1 % (36.0-47.0); HEMOGLOBIN 14.3 g/dl (12.0-15.5); MEAN CORPUSCULAR HEMOGLOBIN 30.7 pg (27.0-33.0); MEAN CORPUSCULAR HGB CONC 32.4 g/dl (32.0-36.5); MEAN CORPUSCULAR VOLUME 94.6 fl (80.0-96.0); RED BLOOD COUNT 4.66 10^6/uL (4.00-5.40)
[2022-10-07 15:05] LABS: PLATELET COUNT, AUTOMATED 81 10^3/uL (150-450)
[2022-10-07 15:40] LABS: ALBUMIN 3.2 G/DL (3.2-5.2); ALKALINE PHOSPHATASE 174 U/L (46-116); ALT/SGPT 14 U/L (7.0-40); AST/SGOT 48 U/L (<34); BILIRUBIN,TOTAL 1.6 MG/DL (0.3-1.2); BLOOD UREA NITROGEN 15 MG/DL (9-23); CALCIUM LEVEL 8.3 MG/DL (8.3-10.6); CARBON DIOXIDE LEVEL 26 MMOL/L (20-31); CHLORIDE LEVEL 112 MMOL/L (98-107); CREATININE FOR GFR 0.47 MG/DL (0.55-1.30); GLOMERULAR FILTRATION RATE > 60.0 (>45); GLUCOSE, FASTING 135 MG/DL (74-106); POTASSIUM SERUM 3.8 MMOL/L (3.5-5.1); SODIUM LEVEL 144 MMOL/L (136-145)
== END ==
LOC: M WUC 10:24
PROVIDERS: ATTEND Physician Assistant Medical
DX: K74.60 Unspecified cirrhosis of liver (principal)

== ENCOUNTER → 2022-10-13 | Outpatient (CLI) | payer MEDICARE | LOC: M RAD 09:25 | PROVIDERS: ATTEND Physician Assistant Medical | DX: K74.60 Unspecified cirrhosis of liver (principal); K75.81 Nonalcoholic steatohepatitis (NASH); K76.6 Portal hypertension ==

== ENCOUNTER 2022-11-10 12:05 | Day surgery (SDC) | payer MEDICARE ==
[~2022-11-10] VITALS: Ht 162.6 cm; Wt 97.5 kg
[~2022-11-10 12:05] MED LIST changes: +NS 1,000 ML IV ONE; +POTA1TAB23 PO; +RA S25CA PO
[2022-11-10 13:34] VITALS: BP 150/86; O2SAT 94
== END 2022-11-10 13:37 | disposition home or self-care (01) ==
LOC: M OPP 12:05
PROVIDERS: ATTEND Internal Medicine Gastroenterology
DX: K74.60 Unspecified cirrhosis of liver (principal); K31.89 Other diseases of stomach and duodenum; K76.6 Portal hypertension; I85.10 Secondary esophageal varices without bleeding; Z87.891 Personal history of nicotine dependence; Z79.02 Long term (current) use of antithrombotics/antiplatelets; Z79.84 Long term (current) use of oral hypoglycemic drugs; Z79.899 Other long term (current) drug therapy

== ENCOUNTER → 2023-01-13 | Outpatient (CLI) | payer MEDICARE ==
[~2023-01-13] MED LIST changes: +GLIP5TAB17 PO; -GLIP5TAB8 PO; -NS 1,000 ML IV ONE
[2023-01-13 16:58] LABS: BASO % 0.8 % (0.0-1.0); EOS # 0.2 10^3/uL (0.0-0.5); HEMATOCRIT 43.6 % (36.0-47.0); HEMOGLOBIN 14.4 g/dl (12.0-15.5); LYMPH # 1.6 10^3/uL (1.5-5.0); LYMPH % 33.8 % (24.0-44.0); MEAN CORPUSCULAR HEMOGLOBIN 31.6 pg (27.0-33.0); MEAN CORPUSCULAR VOLUME 95.8 fl (80.0-96.0); MONO # 0.5 10^3/uL (0.0-0.8); MONO % 9.5 % (2.0-8.0); NEUTROPHILS # 2.4 10^3/uL (1.5-8.5); NEUTROPHILS % 50.7 % (36.0-66.0); RED BLOOD COUNT 4.55 10^6/uL (4.00-5.40); WHITE BLOOD COUNT 4.8 10^3/uL (4.0-10.0)
[2023-01-13 17:16] LABS: ALBUMIN 3.1 G/DL (3.2-5.2); ALKALINE PHOSPHATASE 172 U/L (46-116); ALT/SGPT 44 U/L (7.0-40); AST/SGOT 62 U/L (<34); BILIRUBIN,TOTAL 1.9 MG/DL (0.3-1.2); BLOOD UREA NITROGEN 14 MG/DL (9-23); CALCIUM LEVEL 8.3 MG/DL (8.3-10.6); CARBON DIOXIDE LEVEL 26 MMOL/L (20-31); CHLORIDE LEVEL 110 MMOL/L (98-107); CHOLESTEROL LEVEL 58 MG/DL (<200); CHOLESTEROL RISK RATIO 2.18 (<5); CREATININE FOR GFR 0.53 MG/DL (0.55-1.30); GLOMERULAR FILTRATION RATE > 60.0 (>45); GLUCOSE, FASTING 119 MG/DL (74-106); HDL CHOLESTEROL 26.5 MG/DL (>40); LDL CHOLESTEROL 18.7 MG/DL (<100); NON-HDL-C 31.5 MG/DL; POTASSIUM SERUM 3.6 MMOL/L (3.5-5.1); SODIUM LEVEL 144 MMOL/L (136-145); TOTAL PROTEIN 6.3 G/DL (5.7-8.2); TRIGLYCERIDES LEVEL 64 MG/DL (<150)
[2023-01-13 17:55] LABS: PLATELET COUNT, AUTOMATED 74 10^3/uL (150-450)
[2023-01-13 18:22] LABS: HEMOGLOBIN A1c 6.3 % (4.0-6.0)
== END ==
LOC: M WUC 10:17
PROVIDERS: ATTEND Family Medicine
DX: E11.65 Type 2 diabetes mellitus with hyperglycemia (principal); M25.572 Pain in left ankle and joints of left foot; M79.672 Pain in left foot; E78.5 Hyperlipidemia, unspecified; M77.32 Calcaneal spur, left foot

== ENCOUNTER → 2023-01-25 | Outpatient (CLI) | payer MEDICARE | LOC: M WHC 12:51 | PROVIDERS: ATTEND Nurse Practitioner | DX: Z85.3 Personal history of malignant neoplasm of breast (principal) | CPT/HCPCS: 76642; 77066; G0279 ==

== ENCOUNTER → 2023-06-15 | Outpatient (CLI) | payer MEDICARE ==
[~2023-06-15] MED LIST changes: -ALLE1TAB23 PO; +FEXO-157 PO
== END ==
LOC: M WHC 10:05
PROVIDERS: ATTEND Nurse Practitioner
DX: D05.01 Lobular carcinoma in situ of right breast (principal); Z53.9 Procedure and treatment not carried out, unspecified reason

== ENCOUNTER → 2023-09-09 | Outpatient (CLI) | payer MEDICARE ==
[~2023-09-09] MED LIST changes: +ZYRTTAB8 PO
[2023-09-09 14:26] LABS: ALBUMIN 2.8 G/DL (3.2-5.2); BILIRUBIN,DIRECT 0.8 MG/DL (<0.4); BILIRUBIN,TOTAL 1.5 MG/DL (0.3-1.2); TOTAL PROTEIN 5.7 G/DL (5.7-8.2)
[2023-09-09 14:33] LABS: HEMATOCRIT 38.2 % (36.0-47.0); HEMOGLOBIN 12.7 g/dl (12.0-15.5); MEAN CORPUSCULAR HEMOGLOBIN 32.3 pg (27.0-33.0); MEAN CORPUSCULAR HGB CONC 33.2 g/dl (32.0-36.5); MEAN CORPUSCULAR VOLUME 97.2 fl (80.0-96.0); RED BLOOD COUNT 3.93 10^6/uL (4.00-5.40); WHITE BLOOD COUNT 4.7 10^3/uL (4.0-10.0)
[2023-09-09 14:37] LABS: PLATELET COUNT, AUTOMATED 77 10^3/uL (150-450)
== END ==
LOC: M WUC 09:55
PROVIDERS: ATTEND Physician Assistant Medical
DX: K74.60 Unspecified cirrhosis of liver (principal)

== ENCOUNTER → 2023-10-14 | Outpatient (CLI) | payer MEDICARE ==
[~2023-10-14] MED LIST changes: +NAPR-885
== END ==
LOC: M WHC 07:16
PROVIDERS: ATTEND Physician Assistant Medical
DX: K74.60 Unspecified cirrhosis of liver (principal)

== ENCOUNTER → 2023-11-22 | Outpatient (CLI) | payer MEDICARE ==
[~2023-11-22] MED LIST changes: -FEXO-157 PO; +FEXO-63 PO
[2023-11-22 14:15] LABS: BASO # 0.1 10^3/uL (0.0-0.2); BASO % 1.2 % (0.0-1.0); EOS # 0.3 10^3/uL (0.0-0.5); EOS % 7.1 % (0.0-3.0); HEMATOCRIT 37.8 % (36.0-47.0); HEMOGLOBIN 11.9 g/dl (12.0-15.5); MEAN CORPUSCULAR HEMOGLOBIN 29.8 pg (27.0-33.0); MEAN CORPUSCULAR HGB CONC 31.5 g/dl (32.0-36.5); MEAN CORPUSCULAR VOLUME 94.7 fl (80.0-96.0); MONO # 0.5 10^3/uL (0.0-0.8); MONO % 11.8 % (2.0-8.0); NEUTROPHILS # 1.3 10^3/uL (1.5-8.5); NEUTROPHILS % 30.9 % (36.0-66.0); RED BLOOD COUNT 3.99 10^6/uL (4.00-5.40); WHITE BLOOD COUNT 4.1 10^3/uL (4.0-10.0)
[2023-11-22 14:21] LABS: HEMOGLOBIN A1c 5.7 % (4.0-6.0)
[2023-11-22 14:27] LABS: PLATELET COUNT, AUTOMATED 78 10^3/uL (150-450)
[2023-11-22 14:39] LABS: CREATININE, URINE 211.7 MG/DL; MAU/CREAT RATIO 22.6 MCG/MG (0.0-30.0)
[2023-11-22 14:40] LABS: ALBUMIN 2.7 G/DL (3.2-5.2); ALKALINE PHOSPHATASE 110 U/L (46-116); ALT/SGPT 32 U/L (7.0-40); AST/SGOT 51 U/L (<34); BILIRUBIN,TOTAL 1.6 MG/DL (0.3-1.2); BLOOD UREA NITROGEN 13 MG/DL (9-23); CARBON DIOXIDE LEVEL 28 MMOL/L (20-31); CHLORIDE LEVEL 111 MMOL/L (98-107); CHOLESTEROL LEVEL 52 MG/DL (<200); CREATININE FOR GFR 0.61 MG/DL (0.55-1.30); GLOMERULAR FILTRATION RATE > 60.0 (>39); GLUCOSE, FASTING 222 MG/DL (74-106); HDL CHOLESTEROL 17.3 MG/DL (>40); LDL CHOLESTEROL 24.9 MG/DL (<100); NON-HDL-C 34.7 MG/DL; SODIUM LEVEL 145 MMOL/L (136-145); TOTAL PROTEIN 5.6 G/DL (5.7-8.2); TRIGLYCERIDES LEVEL 49 MG/DL (<150)
== END ==
LOC: M PLALAB 12:38
PROVIDERS: ATTEND Family Medicine
DX: E11.9 Type 2 diabetes mellitus without complications (principal); D50.9 Iron deficiency anemia, unspecified; E78.5 Hyperlipidemia, unspecified

== ENCOUNTER 2023-12-27 00:53 | Emergency (ER) | payer MEDICARE ==
[~2023-12-27] VITALS: Ht 162.6 cm; Wt 90.9 kg
[~2023-12-27 00:53] MED LIST changes: +MULTTAB61 PO; +SLOWTAB2 PO
[2023-12-27 00:54] VITALS: TEMP 96.8
[2023-12-27 01:56] LABS: BASO % 0.9 % (0.0-1.0); EOS # 0.2 10^3/uL (0.0-0.5); EOS % 4.3 % (0.0-3.0); HEMATOCRIT 37.2 % (36.0-47.0); HEMOGLOBIN 12.1 g/dl (12.0-15.5); LYMPH # 2.6 10^3/uL (1.5-5.0); LYMPH % 57.2 % (24.0-44.0); MEAN CORPUSCULAR HEMOGLOBIN 29.4 pg (27.0-33.0); MEAN CORPUSCULAR HGB CONC 32.5 g/dl (32.0-36.5); MEAN CORPUSCULAR VOLUME 90.5 fl (80.0-96.0); MONO # 0.6 10^3/uL (0.0-0.8); NEUTROPHILS # 1.2 10^3/uL (1.5-8.5); NEUTROPHILS % 25.6 % (36.0-66.0); RED BLOOD COUNT 4.11 10^6/uL (4.00-5.40); WHITE BLOOD COUNT 4.6 10^3/uL (4.0-10.0)
[2023-12-27 02:20] VITALS: BP 140/67
[2023-12-27 02:20] LABS: BLOOD UREA NITROGEN 14 MG/DL (9-23); CALCIUM LEVEL 7.7 MG/DL (8.3-10.6); CARBON DIOXIDE LEVEL 24 MMOL/L (20-31); CHLORIDE LEVEL 111 MMOL/L (98-107); CK-MB VALUE MASS < 1.0 NG/ML (<3.6); CREATININE FOR GFR 0.59 MG/DL (0.55-1.30); GLOMERULAR FILTRATION RATE > 60.0 (>39); GLUCOSE, FASTING 115 MG/DL (74-106); POTASSIUM SERUM 4.6 MMOL/L (3.5-5.1); SODIUM LEVEL 141 MMOL/L (136-145)
[2023-12-27] MEDS: NITROGLYCERIN 0.4MG SUBL TABLET SL PRN (02:20)
[2023-12-27 02:23] LABS: PLATELET COUNT, AUTOMATED 73 10^3/uL (150-450)
[2023-12-27 02:30] LABS: CPK CREATINE PHOSPHOKINASE 79 U/L (34-145); MB/CK RELATIVE INDEX 1.26 (< OR =4)
[2023-12-27 03:12] LABS: CK-MB VALUE MASS < 1.0 NG/ML (<3.6)
[2023-12-27 03:13] LABS: CPK CREATINE PHOSPHOKINASE 65 U/L (34-145); MB/CK RELATIVE INDEX 1.53 (< OR =4)
[2023-12-27] MEDS ORDERED: ISOVUE-370 76% 100ML VIAL As Ordered ONE (03:26)
[2023-12-27] MEDS: NS 500 ML IV ONE (03:49)
[2023-12-27] MEDS: KETOROLAC 30 MG/ML 1ML VIAL IV ONE (03:50)
[2023-12-27 04:00] VITALS: BP 146/73; O2SAT 98
== END 2023-12-27 04:15 | disposition home or self-care (01) ==
LOC: M ED 00:53
DX: R07.9 Chest pain, unspecified (principal); I49.1 Atrial premature depolarization; I45.81 Long QT syndrome; E11.9 Type 2 diabetes mellitus without complications; I10 Essential (primary) hypertension; E78.5 Hyperlipidemia, unspecified; K21.9 Gastro-esophageal reflux disease without esophagitis; F17.200 Nicotine dependence, unspecified, uncomplicated; Z90.89 Acquired absence of other organs; Z88.8 Allergy status to other drugs, medicaments and biological substances; Z79.02 Long term (current) use of antithrombotics/antiplatelets; Z79.811 Long term (current) use of aromatase inhibitors; Z79.1 Long term (current) use of non-steroidal anti-inflammatories (NSAID); Z79.899 Other long term (current) drug therapy
CPT/HCPCS: 71046; 71275; 80048; 82550; 82553; 84484; 85025; 85049; 85055; 87486; 87581; 87633; 87798; 93005; 93041; 94760; 96374; 99285; J1885; Q9967

== ENCOUNTER 2023-12-30 10:58 | Day surgery (SDC) | payer MEDICARE ==
[~2023-12-30] VITALS: Ht 162.6 cm; Wt 91.3 kg
[2023-12-30] MEDS: NS 1,000 ML IV ONE (12:10)
[2023-12-30] MEDS ORDERED: fentaNYL 100 MCG/2 ML INJECTION As Ordered ONE (13:40)
[2023-12-30] MEDS ORDERED: propofoL 200 MG/20 ML VIAL As Ordered ONE (13:53)
[2023-12-30 14:18] VITALS: BP 159/76; TEMP 96.9; O2SAT 96
== END 2023-12-30 14:35 | disposition home or self-care (01) ==
LOC: M OPP 10:58
PROVIDERS: ATTEND Internal Medicine Gastroenterology
DX: K74.60 Unspecified cirrhosis of liver (principal); I85.10 Secondary esophageal varices without bleeding; K76.6 Portal hypertension; K31.89 Other diseases of stomach and duodenum; K75.81 Nonalcoholic steatohepatitis (NASH); K21.9 Gastro-esophageal reflux disease without esophagitis; E11.9 Type 2 diabetes mellitus without complications; I10 Essential (primary) hypertension; J44.9 Chronic obstructive pulmonary disease, unspecified; E78.00 Pure hypercholesterolemia, unspecified; Z79.899 Other long term (current) drug therapy; Z79.84 Long term (current) use of oral hypoglycemic drugs; Z85.3 Personal history of malignant neoplasm of breast; Z86.73 Personal history of transient ischemic attack (TIA), and cerebral infarction without residual deficits; Z92.3 Personal history of irradiation; Z88.8 Allergy status to other drugs, medicaments and biological substances; Z87.891 Personal history of nicotine dependence
CPT/HCPCS: 43239; 88305; J3010

== ENCOUNTER → 2024-01-04 | Outpatient (CLI) | payer MEDICARE | LOC: M WHC 13:18 | PROVIDERS: ATTEND Internal Medicine Medical Oncology | DX: Z85.3 Personal history of malignant neoplasm of breast (principal); R92.313 Mammographic fatty tissue density, bilateral breasts | CPT/HCPCS: 77066; G0279 ==

== ENCOUNTER → 2024-04-11 | Outpatient (CLI) | payer MEDICARE ==
[2024-04-11 19:14] LABS: BASO % 0.8 % (0.0-1.0); EOS # 0.2 10^3/uL (0.0-0.5); EOS % 4.8 % (0.0-3.0); HEMATOCRIT 36.9 % (36.0-47.0); HEMOGLOBIN 11.6 g/dl (12.0-15.5); LYMPH # 2.1 10^3/uL (1.5-5.0); LYMPH % 44.2 % (24.0-44.0); MEAN CORPUSCULAR HEMOGLOBIN 28.6 pg (27.0-33.0); MEAN CORPUSCULAR HGB CONC 31.4 g/dl (32.0-36.5); MEAN CORPUSCULAR VOLUME 91.1 fl (80.0-96.0); MONO # 0.5 10^3/uL (0.0-0.8); MONO % 9.8 % (2.0-8.0); NEUTROPHILS # 1.9 10^3/uL (1.5-8.5); NEUTROPHILS % 40.2 % (36.0-66.0); PLATELET COUNT, AUTOMATED 103 10^3/uL (150-450); RED BLOOD COUNT 4.05 10^6/uL (4.00-5.40); WHITE BLOOD COUNT 4.8 10^3/uL (4.0-10.0)
[2024-04-11 19:34] LABS: HEMOGLOBIN A1c 5.4 % (4.0-6.0)
[2024-04-11 19:36] LABS: IRON (FE) 53 UG/DL (50-170)
[2024-04-11 19:37] LABS: ALBUMIN 2.4 G/DL (3.2-5.2); ALKALINE PHOSPHATASE 116 U/L (35-104); ALT/SGPT 41 U/L (7.0-40); AST/SGOT 69 U/L (<34); BILIRUBIN,TOTAL 1.5 MG/DL (0.3-1.2); BLOOD UREA NITROGEN 14 MG/DL (9-23); CALCIUM LEVEL 8.1 MG/DL (8.3-10.6); CARBON DIOXIDE LEVEL 31 MMOL/L (20-31); CHLORIDE LEVEL 106 MMOL/L (98-107); CREATININE FOR GFR 0.59 MG/DL (0.55-1.30); GLOMERULAR FILTRATION RATE > 60.0 (>39); GLUCOSE, FASTING 177 MG/DL (74-106); MAGNESIUM LEVEL 1.2 MG/DL (1.8-2.4); PERCENT SATURATION 18.5 % (13.2-45.0); POTASSIUM SERUM 3.2 MMOL/L (3.5-5.1); SODIUM LEVEL 145 MMOL/L (136-145); TOTAL IRON BINDING CAPACITY 286 UG/DL (250-425)
[2024-04-11 19:39] LABS: FERRITIN 7.2 NG/ML (7.3-270.7); FOLATE 14.31 NG/ML (>5.4)
[2024-04-11 19:40] LABS: VITAMIN B12 LEVEL 1217 PG/ML (211-911)
== END ==
LOC: M WUC 11:59
PROVIDERS: ATTEND Family Medicine
DX: E11.9 Type 2 diabetes mellitus without complications (principal); D69.6 Thrombocytopenia, unspecified; D05.10 Intraductal carcinoma in situ of unspecified breast; K76.6 Portal hypertension; R11.0 Nausea

== ENCOUNTER → 2024-05-04 | Outpatient (REF) | payer MEDICARE | LOC: M SFHCPLAZ 12:19 | PROVIDERS: ATTEND Physician Assistant Medical | DX: J06.9 Acute upper respiratory infection, unspecified (principal) ==

== ENCOUNTER 2024-06-12 10:09 | Inpatient (IN) | payer MEDICARE ==
[~2024-06-12] VITALS: Ht 162.6 cm; Wt 95.1 kg
[2024-06-12] VITALS (8 sets, daily range): BP systolic 112–123; BP diastolic 69–76; TEMP 98.1–98.4; O2SAT 91–94
[~2024-06-12 10:09] MED LIST changes: +BENZ200C70; +PHOS1TAB3 PO
[2024-06-12] MEDS: ACETAMINOPHEN *IV* 1,000 MG in IV 1 EA IV ONE (10:42)
[2024-06-12] MEDS ORDERED: ALBU2.5V10 (10:54)
[2024-06-12 11:00] LABS: VENOUS BASE EXCESS -5.7 (-2.0-2.0); VENOUS HCO3 17.1 MMOL/L (23.0-27.0); VENOUS O2 SATURATION 97.1 % (60.0-80.0); VENOUS PARTIAL PRESSURE CO2 26.2 mmHg (38.0-50.0); VENOUS PARTIAL PRESSURE O2 95.1 mmHg (30.0-50.0); VENOUS PH 7.432 UNITS (7.330-7.430); VENOUS STANDARD HCO3 19.8 MMOL/L; VENOUS TOTAL CO2 17.9 MMOL/L (24.0-28.0)
[2024-06-12 11:02] LABS: BASO # 0.1 10^3/uL (0.0-0.2); BASO % 0.3 % (0.0-1.0); EOS % 0.1 % (0.0-3.0); HEMATOCRIT 35.5 % (36.0-47.0); HEMOGLOBIN 11.7 g/dl (12.0-15.5); LYMPH # 1.5 10^3/uL (1.5-5.0); LYMPH % 6.9 % (24.0-44.0); MEAN CORPUSCULAR HEMOGLOBIN 33.4 pg (27.0-33.0); MEAN CORPUSCULAR VOLUME 101.4 fl (80.0-96.0); MONO # 1.1 10^3/uL (0.0-0.8); MONO % 5.3 % (2.0-8.0); NEUTROPHILS # 18.2 10^3/uL (1.5-8.5); NEUTROPHILS % 85.9 % (36.0-66.0); PLATELET COUNT, AUTOMATED 133 10^3/uL (150-450); WHITE BLOOD COUNT 21.2 10^3/uL (4.0-10.0)
[2024-06-12 11:32] LABS: ALBUMIN 1.9 G/DL (3.2-5.2); ALKALINE PHOSPHATASE 142 U/L (35-104); ALT/SGPT 65 U/L (7.0-40); AST/SGOT 101 U/L (<34); BILIRUBIN,DIRECT 1.6 MG/DL (<0.4); BILIRUBIN,TOTAL 2.5 MG/DL (0.3-1.2); BLOOD UREA NITROGEN 13 MG/DL (9-23); CALCIUM LEVEL 7.9 MG/DL (8.3-10.6); CARBON DIOXIDE LEVEL 19 MMOL/L (20-31); CHLORIDE LEVEL 107 MMOL/L (98-107); CREATININE FOR GFR 0.81 MG/DL (0.55-1.30); GLOMERULAR FILTRATION RATE > 60.0 (>39); GLUCOSE, FASTING 82 MG/DL (74-106); MAGNESIUM LEVEL 1.3 MG/DL (1.8-2.4); POTASSIUM SERUM 3.6 MMOL/L (3.5-5.1); SODIUM LEVEL 139 MMOL/L (136-145); TOTAL PROTEIN 5.9 G/DL (5.7-8.2)
[2024-06-12] MEDS: NS 0.9% IV ONE (11:50)
[2024-06-12] MEDS: [UNRECOGNIZED DRUG - OTHER] IV ONE (11:50)
[2024-06-12] MEDS: IPRATROPIUM 0.5MG/ALBUTEROL 2.5MG INH SOL UD 3ML (DUONEB) NEB PRN (11:50)
[2024-06-12] MEDS: dexAMETHasone 20MG/5ML VIAL IV ONE (11:50)
[2024-06-12] MEDS: CEFEPIME HCL 2 GM in DEXTROSE 5% (D5W) ADV/MINI-BAG 50 ML IV ONE (11:50)
[2024-06-12 11:57] LABS: ABG HCO3 19.4 MMOL/L (22.0-26.0); ABG PARTIAL PRESSURE CO2 26.9 mmHg (35.0-45.0); ABG PARTIAL PRESSURE O2 65.8 mmHg (75.0-100.0); ABG STANDARD HCO3 21.9 MMOL/L. (22.0-26.0); ABG TOTAL CO2 20.2 MMOL/L (23.0-31.0); ABG pH (ARTERIAL) 7.476 UNITS (7.350-7.450)
[2024-06-12] MEDS: MAG SULF 1GM/100ML (MAG RUN) 1 GM in IV 1 EA IV ONE (12:28)
[2024-06-12] MEDS ORDERED: IPRA0.00 INH (13:27)
[2024-06-12] MEDS ORDERED: HOME MED LIST COMPLETE! XX SCH (13:30)
[2024-06-12 14:17] LABS: INR 1.97; PROTHROMBIN TIME 22.6 SECONDS (12.5-14.5)
[2024-06-12] MEDS ORDERED: ONDANSETRON 4MG 2ML VIAL IV PRN (14:30)
[2024-06-12] MEDS ORDERED: ISOVUE-370 76% 100ML VIAL As Ordered ONE (14:32)
[2024-06-12 14:47] LABS: APPEARANCE, URINE CLOUDY (CLEAR); BACTERIA, URINE AUTO 1+ (NEGATIVE); BILIRUBIN, URINE AUTO 1+ (NEGATIVE); BLOOD, URINE BLOOD 2+ (NEGATIVE); COLOR, URINE AMBER (YELLOW); GLUCOSE, URINE (UA) AUTO NEGATIVE (NEGATIVE); KETONE, URINE AUTO NEGATIVE (NEGATIVE); LEUKOCYTE ESTERASE, URINE AUTO 2+ (NEGATIVE); MUCUS, URINE LARGE (NEGATIVE); NITRITE, URINE AUTO POSITIVE (NEGATIVE); PROTEIN, URINE AUTO 2+ mg/dL (NEGATIVE); RBC, URINE AUTO 71 /HPF (0-3); SPECIFIC GRAVITY URINE AUTO 1.024 (1.002-1.035); SQUAMOUS EPITHELIAL CELL UR AU 4 /HPF (0-6); WBC, URINE AUTO TNTC /HPF (0-3)
[2024-06-12 14:55] LABS: HEPATITIS B SURFACE ANTIGEN NEGATIVE (NEGATIVE)
[2024-06-12] MEDS: AZITHROMYCIN 250MG TABLET PO SCH (14:58)
[2024-06-12] MEDS: PANTOPRAZOLE 40MG TAB (PROTONIX) PO SCH (14:58)
[2024-06-12 15:18] LABS: HEPATITIS B CORE ANTIBODY IGM NEGATIVE (NEGATIVE); HEPATITIS C VIRUS ABY INDEX 0.24 INDEX (<0.8)
[2024-06-12] MEDS: IPRATROPIUM 0.5MG/ALBUTEROL 2.5MG INH SOL UD 3ML (DUONEB) NEB SCH (16:24)
[2024-06-12] MEDS: POTASSIUM CHLORIDE 10MEQ SR TABLET PO ONE (17:14)
[2024-06-12] MEDS: VANCOMYCIN HCL 1,000 MG, VIAL MATE ADAPTER 1 EACH in NS 250 ML IV ONE (17:14)
[2024-06-12] MEDS: CEFEPIME HCL 2 GM in DEXTROSE 5% (D5W) ADV/MINI-BAG 50 ML IV SCH (21:24)
[2024-06-12] MEDS: HEPARIN SOD (PORCINE) 5000UNITS/ML 1ML VIAL/SYRINGE SC SCH (21:25)
[2024-06-12] MEDS: traZODone 50 MG TAB PO SCH (21:26)
[2024-06-12] MEDS: CARVedilol 3.125 MG TAB PO SCH (21:29)
[2024-06-12] MEDS: ATORVASTATIN 20 MG TAB PO SCH (21:29)
[2024-06-12] MEDS: VANCOMYCIN HCL 1,000 MG, VIAL MATE ADAPTER 1 EACH in NS 250 ML IV SCH (22:34)
[2024-06-13] VITALS (27 sets, daily range): BP systolic 106–126; BP diastolic 58–72; TEMP 96.9–98.3; O2SAT 90–100
[2024-06-13 08:00] LABS: HEMATOCRIT 31.6 % (36.0-47.0); HEMOGLOBIN 10.2 g/dl (12.0-15.5); MEAN CORPUSCULAR HEMOGLOBIN 32.9 pg (27.0-33.0); MEAN CORPUSCULAR HGB CONC 32.3 g/dl (32.0-36.5); MEAN CORPUSCULAR VOLUME 101.9 fl (80.0-96.0); WHITE BLOOD COUNT 23.7 10^3/uL (4.0-10.0)
[2024-06-13 08:26] LABS: PLATELET COUNT, AUTOMATED 83 10^3/uL (150-450)
[2024-06-13 08:39] LABS: PROCALCITONIN 2.72 ng/ml
[2024-06-13 08:45] LABS: ALBUMIN 1.7 G/DL (3.2-5.2); ALKALINE PHOSPHATASE 120 U/L (35-104); ALT/SGPT 69 U/L (7.0-40); AST/SGOT 157 U/L (<34); BILIRUBIN,TOTAL 1.9 MG/DL (0.3-1.2); BLOOD UREA NITROGEN 17 MG/DL (9-23); CALCIUM LEVEL 7.3 MG/DL (8.3-10.6); CARBON DIOXIDE LEVEL 18 MMOL/L (20-31); CHLORIDE LEVEL 111 MMOL/L (98-107); GLOMERULAR FILTRATION RATE > 60.0 (>39); GLUCOSE, FASTING 124 MG/DL (74-106); MAGNESIUM LEVEL 1.7 MG/DL (1.8-2.4); SODIUM LEVEL 141 MMOL/L (136-145); TOTAL PROTEIN 5.5 G/DL (5.7-8.2)
[2024-06-13] MEDS: VANCOMYCIN HCL 750 MG, VIAL MATE ADAPTER 1 EACH in NS 250 ML IV SCH (10:25)
[2024-06-13] MEDS: MAGNESIUM OXIDE 400MG TAB (MAG-OX) PO SCH (10:27)
[2024-06-13] MEDS: FUROSEMIDE 40MG/4ML VIAL IV ONE (14:17)
[2024-06-14] VITALS (15 sets, daily range): BP systolic 93–146; BP diastolic 64–77; TEMP 97.3–98.6; O2SAT 90–96
[2024-06-14 07:14] LABS: HEMATOCRIT 32.5 % (36.0-47.0); HEMOGLOBIN 10.5 g/dl (12.0-15.5); MEAN CORPUSCULAR HEMOGLOBIN 32.2 pg (27.0-33.0); MEAN CORPUSCULAR HGB CONC 32.3 g/dl (32.0-36.5); MEAN CORPUSCULAR VOLUME 99.7 fl (80.0-96.0); PLATELET COUNT, AUTOMATED 100 10^3/uL (150-450); RED BLOOD COUNT 3.26 10^6/uL (4.00-5.40); WHITE BLOOD COUNT 24.1 10^3/uL (4.0-10.0)
[2024-06-14 08:06] LABS: ALBUMIN 1.6 G/DL (3.2-5.2); ALKALINE PHOSPHATASE 128 U/L (35-104); ALT/SGPT 80 U/L (7.0-40); AST/SGOT 160 U/L (<34); BILIRUBIN,TOTAL 1.9 MG/DL (0.3-1.2); BLOOD UREA NITROGEN 22 MG/DL (9-23); CALCIUM LEVEL 7.5 MG/DL (8.3-10.6); CARBON DIOXIDE LEVEL 25 MMOL/L (20-31); CHLORIDE LEVEL 109 MMOL/L (98-107); CREATININE FOR GFR 0.75 MG/DL (0.55-1.30); GLOMERULAR FILTRATION RATE > 60.0 (>39); GLUCOSE, FASTING 105 MG/DL (74-106); MAGNESIUM LEVEL 1.8 MG/DL (1.8-2.4); POTASSIUM SERUM 3.8 MMOL/L (3.5-5.1); SODIUM LEVEL 142 MMOL/L (136-145); TOTAL PROTEIN 5.4 G/DL (5.7-8.2)
[2024-06-14] MEDS: VANCOMYCIN HCL 1,500 MG, VIAL MATE ADAPTER 1 EACH in NS 500 ML IV SCH (09:45)
[2024-06-14] MEDS: diphenhydrAMINE 25MG CAP PO ONE (21:08)
[2024-06-14] MEDS: guaiFENesin ER TABLET 600 MG TAB PO ONE (21:08)
[2024-06-14] MEDS: CEFDINIR 300 MG CAP (OMNICEF) PO ONE (22:10)
[2024-06-15 04:03] VITALS: BP 133/78; TEMP 97.8; O2SAT 95
[2024-06-15 07:00] VITALS: O2SAT 94
[2024-06-15 08:00] VITALS: BP 134/66; TEMP 97.6; O2SAT 92; O2SAT 94
[2024-06-15] MEDS: DOXYCYCLINE HYCLATE 100MG TABLET PO SCH (08:20)
[2024-06-15 08:21] VITALS: BP 133/78
[2024-06-15] MEDS: TORSEMIDE 20 MG TAB PO SCH (08:21)
[2024-06-15 09:00] VITALS: O2SAT 94
[2024-06-15 10:00] VITALS: O2SAT 93
[2024-06-15] MEDS ORDERED: TORS20TA2 PO (11:55)
[2024-06-15] MEDS ORDERED: CEFD300CAP PO (11:55)
[2024-06-15] MEDS ORDERED: DOXY100T PO (11:55)
[2024-06-15] MEDS ORDERED: MAGN400T2 PO (11:57)
[2024-06-15] MEDS ORDERED: CEFDINIR 300 MG CAP (OMNICEF) PO SCH (21:00)
== END 2024-06-15 14:00 | disposition home health service (06) | DRG 871 ==
LOC: EDBD 10:09 → M ED 10:09 → M ED INP 13:42 → EEVIPCON 13:42 → M PCU 15:02
PROVIDERS: ADMIT Student in an Organized Health Care Education/Training Program; ATTEND Internal Medicine Nephrology
DX: A41.9 Sepsis, unspecified organism (principal); J18.9 Pneumonia, unspecified organism; N39.0 Urinary tract infection, site not specified; R18.8 Other ascites; E87.20 Acidosis, unspecified; I10 Essential (primary) hypertension; E88.09 Other disorders of plasma-protein metabolism, not elsewhere classified; R74.01 Elevation of levels of liver transaminase levels; J44.9 Chronic obstructive pulmonary disease, unspecified; E83.42 Hypomagnesemia; R65.20 Severe sepsis without septic shock; E11.9 Type 2 diabetes mellitus without complications; K74.60 Unspecified cirrhosis of liver; R16.1 Splenomegaly, not elsewhere classified; D69.6 Thrombocytopenia, unspecified; K21.9 Gastro-esophageal reflux disease without esophagitis; E78.5 Hyperlipidemia, unspecified; R29.6 Repeated falls; F32.A Depression, unspecified; K75.81 Nonalcoholic steatohepatitis (NASH); E66.811 Obesity, class 1; D50.9 Iron deficiency anemia, unspecified; Z85.3 Personal history of malignant neoplasm of breast; E66.9 Obesity, unspecified; Z85.528 Personal history of other malignant neoplasm of kidney; B95.62 Methicillin resistant Staphylococcus aureus infection as the cause of diseases classified elsewhere; Z86.73 Personal history of transient ischemic attack (TIA), and cerebral infarction without residual deficits; Z88.6 Allergy status to analgesic agent; Z88.8 Allergy status to other drugs, medicaments and biological substances; Z79.899 Other long term (current) drug therapy; Z87.891 Personal history of nicotine dependence; Z86.16 Personal history of COVID-19; N85.8 Other specified noninflammatory disorders of uterus

== ENCOUNTER → 2024-06-28 | Outpatient (CLI) | payer MEDICARE ==
[~2024-06-28] MED LIST changes: +ALBU2.5V10; +CEFD300CAP PO; +DOXY100T PO; +IPRA0.00 INH; +MAGN400T2 PO; +TORS20TA2 PO
== END ==
LOC: M RAD 07:41
PROVIDERS: ATTEND Physician Assistant Medical
DX: K74.60 Unspecified cirrhosis of liver (principal)

== ENCOUNTER → 2024-08-09 | Outpatient (CLI) | payer MEDICARE ==
[~2024-08-09] MED LIST changes: -AMBI10TA PO; +MAG100TA PO; +METF500T13; +ZOLP-533 PO
[2024-08-09 17:30] LABS: BLOOD UREA NITROGEN 12 MG/DL (9-23); CALCIUM LEVEL 7.9 MG/DL (8.3-10.6); CARBON DIOXIDE LEVEL 36 MMOL/L (20-31); CHLORIDE LEVEL 102 MMOL/L (98-107); CREATININE FOR GFR 0.63 MG/DL (0.55-1.30); GLOMERULAR FILTRATION RATE > 90.0 (>39); GLUCOSE, FASTING 93 MG/DL (74-106); POTASSIUM SERUM 3.2 MMOL/L (3.5-5.1); SODIUM LEVEL 144 MMOL/L (136-145)
== END ==
LOC: M WUC 13:42
PROVIDERS: ATTEND Physician Assistant
DX: R06.02 Shortness of breath (principal)

== ENCOUNTER 2024-09-25 12:37 | Inpatient (IN) | payer MEDICARE ==
[~2024-09-25] VITALS: Ht 162.6 cm; Wt 78.1 kg
[~2024-09-25 12:37] MED LIST changes: +ACET650T15 PO; +ALDA50TA2 PO; +AMIT10TA11; -AMIT10TA7; -ASPI-310 PO; +ASPI-730 PO; +CARV6.25 PO; +ELIQ5TAB PO; +HYDR-3713 PO; +MED REC COMMENT; +POTA-151 PO; +RISATAB3 PO
[2024-09-25 13:09] LABS: BASO # 0.0 10^3/uL (0.0-0.2); BASO % 0.1 % (0.0-1.0); EOS # 0.1 10^3/uL (0.0-0.5); EOS % 0.9 % (0.0-3.0); LYMPH # 1.3 10^3/uL (1.5-5.0); LYMPH % 7.9 % (24.0-44.0); MONO # 1.0 10^3/uL (0.0-0.8); MONO % 6.4 % (2.0-8.0); NEUTROPHILS # 13.4 10^3/uL (1.5-8.5); NEUTROPHILS % 84.1 % (36.0-66.0)
[2024-09-25 13:17] LABS: PLATELET COUNT, AUTOMATED 53 10^3/uL (150-450)
[2024-09-25] MEDS: NS (Normal Saline) 0.9% 1,000 ML IV ONE (13:23)
[2024-09-25] MEDS: ONDANSETRON 4MG 2ML VIAL IV ONE (13:28)
[2024-09-25] MEDS: CEFEPIME HCL 2 GM in DEXTROSE 5% (D5W) ADV/MINI-BAG 50 ML IV ONE (14:07)
[2024-09-25] MEDS: NS (Normal Saline) 0.9% 2,180 ML in IV 1 EA IV ONE (14:08)
[2024-09-25 14:12] LABS: INR 1.9
[2024-09-25 14:21] LABS: APPEARANCE, URINE HAZY (CLEAR); BACTERIA, URINE AUTO 1+ (NEGATIVE); BILIRUBIN, URINE AUTO NEGATIVE (NEGATIVE); BLOOD, URINE BLOOD 1+ (NEGATIVE); GLUCOSE, URINE (UA) AUTO NEGATIVE (NEGATIVE); KETONE, URINE AUTO NEGATIVE (NEGATIVE); LEUKOCYTE ESTERASE, URINE AUTO NEGATIVE (NEGATIVE); MUCUS, URINE SMALL (NEGATIVE); NITRITE, URINE AUTO NEGATIVE (NEGATIVE); PROTEIN, URINE AUTO NEGATIVE (NEGATIVE); RBC, URINE AUTO 4 /HPF (0-3); SPECIFIC GRAVITY URINE AUTO 1.017 (1.002-1.035); SQUAMOUS EPITHELIAL CELL UR AU 1 /HPF (0-6); UROBILINOGEN, URINE AUTO 4.0 mg/dL (0.0-2.0); WBC, URINE AUTO 16 /HPF (0-3)
[2024-09-25 15:12] LABS: CPK CREATINE PHOSPHOKINASE 235.0 U/L (34-145)
[2024-09-25 15:16] LABS: ALT/SGPT 33.0 U/L (7.0-40); AST/SGOT 89.0 U/L (<34); CALCIUM LEVEL 5.8 MG/DL (8.3-10.6); CARBON DIOXIDE LEVEL 18.0 MMOL/L (20-31); CHLORIDE LEVEL 96.0 MMOL/L (98-107); CK-MB VALUE MASS 3.1 NG/ML (<3.6); CREATININE FOR GFR 4.67 MG/DL (0.55-1.30); GLOMERULAR FILTRATION RATE 9.5 (>39); MB/CK RELATIVE INDEX 1.31 (< OR =4); POTASSIUM SERUM 4.8 MMOL/L (3.5-5.1); SODIUM LEVEL 127.0 MMOL/L (136-145)
[2024-09-25] MEDS ORDERED: HYDR-3713 PO (16:39)
[2024-09-25] MEDS ORDERED: RISATAB3 PO (16:39)
[2024-09-25] MEDS ORDERED: HOME MED LIST COMPLETE! XX SCH (16:45)
[2024-09-25] MEDS ORDERED: PIPERACILLIN/TAZOBACTAM SOD 4.5 GM in DEXTROSE 5% (D5W) ADV/MINI-BAG 50 ML IV SCH (20:00)
[2024-09-25] MEDS: LR 1,000 ML IV SCH (20:11)
[2024-09-25] MEDS: CALCIUM GLUCONATE 1,000 MG in DEXTROSE 5% (D5W) MINI-BAG PLU 100 ML IV ONE (20:11)
[2024-09-25] MEDS: PIPERACILLIN/TAZOBACTAM SOD 4.5 GM in DEXTROSE 5% (D5W) ADV/MINI-BAG 50 ML IV SCH (21:16)
[2024-09-25] MEDS: ATORVASTATIN 20 MG TAB PO SCH (21:16)
[2024-09-25 21:22] LABS: PLATELET COUNT, AUTOMATED 53 10^3/uL (150-450)
[2024-09-25 21:35] VITALS: BP 116/53; TEMP 97.4; O2SAT 99
[2024-09-25] MEDS ORDERED: ONDANSETRON 4MG 2ML VIAL IV PRN (21:40)
[2024-09-25 21:42] LABS: CALCIUM LEVEL 6.2 MG/DL (8.3-10.6); CARBON DIOXIDE LEVEL 16.0 MMOL/L (20-31); CHLORIDE LEVEL 98.0 MMOL/L (98-107); CREATININE FOR GFR 4.18 MG/DL (0.55-1.30); GLOMERULAR FILTRATION RATE 10.8 (>39); POTASSIUM SERUM 4.6 MMOL/L (3.5-5.1); SODIUM LEVEL 128.0 MMOL/L (136-145)
[2024-09-26] VITALS (8 sets, daily range): BP systolic 90–125; BP diastolic 51–72; TEMP 96.9–97.2; O2SAT 97–98
[2024-09-26 00:16] LABS: VENOUS BASE EXCESS -12.0 (-2.0-2.0); VENOUS HCO3 13.3 MMOL/L (23.0-27.0); VENOUS O2 SATURATION 93.5 % (60.0-80.0); VENOUS PARTIAL PRESSURE CO2 29.3 mmHg (38.0-50.0); VENOUS PARTIAL PRESSURE O2 77.5 mmHg (30.0-50.0); VENOUS PH 7.274 UNITS (7.330-7.430); VENOUS STANDARD HCO3 15.2 MMOL/L; VENOUS TOTAL CO2 14.2 MMOL/L (24.0-28.0)
[2024-09-26] MEDS: traZODone 50 MG TAB PO ONE (00:40)
[2024-09-26] MEDS: SODIUM BICARBONATE 100 MEQ in D5W 1,000 ML IV SCH (01:00)
[2024-09-26 06:28] LABS: PLATELET COUNT, AUTOMATED 47 10^3/uL (150-450)
[2024-09-26 06:51] LABS: ALT/SGPT 41.0 U/L (7.0-40); AST/SGOT 134.0 U/L (<34); CALCIUM LEVEL 6.4 MG/DL (8.3-10.6); CARBON DIOXIDE LEVEL 16.0 MMOL/L (20-31); CHLORIDE LEVEL 96.0 MMOL/L (98-107); CREATININE FOR GFR 3.95 MG/DL (0.55-1.30); GLOMERULAR FILTRATION RATE 11.6 (>39); MAGNESIUM LEVEL 1.7 MG/DL (1.8-2.4); POTASSIUM SERUM 5.3 MMOL/L (3.5-5.1); SODIUM LEVEL 126.0 MMOL/L (136-145)
[2024-09-26] MEDS ORDERED: diphenhydrAMINE 50 MG/ML VIAL IV ONE (07:00)
[2024-09-26] MEDS: LACTULOSE 20 GM/30 ML SYRUP UDC PO SCH (07:45)
[2024-09-26] MEDS: PATIROMER SORBITEX CALCIUM 8.4GM POWDER PACKET PO ONE (12:55)
[2024-09-26] MEDS: MIDODRINE 5 MG TAB PO SCH (12:55)
[2024-09-26] MEDS ORDERED: SODIUM CHLORIDE 0.9% INJ 10 ML SYR IV PRN (13:30)
[2024-09-26] MEDS: SODIUM BICARBONATE 150 MEQ in D5W 1,000 ML IV SCH (14:05)
[2024-09-26] MEDS: OCTREOTIDE ACETATE 100 MCG/ML VIAL **SC ADMINISTRATION ONLY SC SCH (14:17)
[2024-09-26] MEDS: SODIUM CHLORIDE 0.9% INJ 10 ML SYR IV SCH (17:39)
[2024-09-26] MEDS: traZODone 50 MG TAB PO SCH (21:26)
[2024-09-27 03:42] VITALS: BP 105/61; TEMP 98.4; O2SAT 99
[2024-09-27 06:32] LABS: PLATELET COUNT, AUTOMATED 35 10^3/uL (150-450)
[2024-09-27 06:43] LABS: ALT/SGPT 43.0 U/L (7.0-40); AST/SGOT 148.0 U/L (<34); CALCIUM LEVEL 5.6 MG/DL (8.3-10.6); CARBON DIOXIDE LEVEL 20.0 MMOL/L (20-31); CHLORIDE LEVEL 92.0 MMOL/L (98-107); CREATININE FOR GFR 3.41 MG/DL (0.55-1.30); GLOMERULAR FILTRATION RATE 13.8 (>39); MAGNESIUM LEVEL 1.5 MG/DL (1.8-2.4); POTASSIUM SERUM 3.9 MMOL/L (3.5-5.1); SODIUM LEVEL 125.0 MMOL/L (136-145)
[2024-09-27 07:38] VITALS: BP 97/55; TEMP 98.5; O2SAT 98
[2024-09-27 08:02] VITALS: BP 97/55
[2024-09-27] MEDS ORDERED: HYOSCYAMINE SULFATE 0.125 MG SUBL TABLET PO PRN (12:55)
[2024-09-27] MEDS ORDERED: ATROPINE SULFATE 1% OPHTH SOLN 2 ML BTL SL PRN (12:55)
[2024-09-27] MEDS ORDERED: SODIUM CHLORIDE NASAL 0.65% SPRAY BTL (OCEAN) PRN (12:55)
[2024-09-27] MEDS: MORPHINE 10 MG/0.5 ML ORAL CONCENTRATE SOLUTION U/D SL PRN (14:07)
[2024-09-28] MEDS: ONDANSETRON 4MG ORAL DISINTEGRATING TAB PO PRN (10:16)
[2024-09-28] MEDS: LORazepam 1 MG TAB PO PRN (15:43)
== END 2024-10-04 22:27 | disposition expired | DRG 871 ==
LOC: M ED 12:37 → EDBD 12:37 → M ED INP 19:14 → M PCU 21:27 → M MSPAV 09-27 15:52
PROVIDERS: ADMIT Student in an Organized Health Care Education/Training Program; ATTEND Student in an Organized Health Care Education/Training Program
DX: A41.9 Sepsis, unspecified organism (principal); G93.41 Metabolic encephalopathy; K65.2 Spontaneous bacterial peritonitis; K76.7 Hepatorenal syndrome; R65.21 Severe sepsis with septic shock; E87.20 Acidosis, unspecified; N17.9 Acute kidney failure, unspecified; N39.0 Urinary tract infection, site not specified; E87.1 Hypo-osmolality and hyponatremia; R18.8 Other ascites; K76.6 Portal hypertension; E86.0 Dehydration; I10 Essential (primary) hypertension; R74.01 Elevation of levels of liver transaminase levels; K74.60 Unspecified cirrhosis of liver; E78.5 Hyperlipidemia, unspecified; I25.10 Atherosclerotic heart disease of native coronary artery without angina pectoris; C06.9 Malignant neoplasm of mouth, unspecified; E11.9 Type 2 diabetes mellitus without complications; E87.5 Hyperkalemia; D69.6 Thrombocytopenia, unspecified; N93.9 Abnormal uterine and vaginal bleeding, unspecified; K72.90 Hepatic failure, unspecified without coma